=== PATIENT | female | born 1975 | race Caucasian/White ===

== ENCOUNTER 2020-10-24 12:39 | Outpatient (REF) | payer OTHER, SELFPAY ==
[2020-10-27 06:38] LABS: CT PCR NOT DETECTED (Not Detect.); NG PCR NOT DETECTED (Not Detect.)
== END 2020-10-24 12:40 | disposition home or self-care (01) ==
LOC: HO.LAB 12:39
PROVIDERS: PCP Internal Medicine; Referring Provider Internal Medicine; Visit Provider Advanced Practice Midwife
DX: Z01.419 Encounter for gynecological examination (general) (routine) without abnormal findings (principal); Z79.899 Other long term (current) drug therapy; Z20.2 Contact with and (suspected) exposure to infections with a predominantly sexual mode of transmission; G43.909 Migraine, unspecified, not intractable, without status migrainosus
CPT/HCPCS: 87491; 87591

== ENCOUNTER → 2020-10-25 15:00 | Outpatient (BNVA) | payer OTHER, SELFPAY | PROVIDERS: Visit Provider Advanced Practice Midwife | DX: Z30.430 Encounter for insertion of intrauterine contraceptive device (principal) | CPT/HCPCS: 58300; 81025; J7298 ==

== ENCOUNTER 2020-11-15 12:17 | Emergency (ER) | payer OTHER, SELFPAY ==
[2020-11-15 13:22] VITALS: BP 157/88; PULSE 67; RESP 18; TEMP 36.9; O2SAT 100; BMI 28.0
--- NOTE | 2020-11-15 13:33 | CT_ITS ---
EXAMINATION: CT HEAD WITHOUT CONTRAST CLINICAL INFORMATION: Severe headache and vomiting. COMPARISON: None TECHNIQUE: Contiguous axial imaging was performed from the skull base to vertex without intravenous administration of contrast. This CT examination was performed using dose optimization techniques as appropriate, variously including the following: *Automated exposure control *Adjustment of mA and/or kV according to patient size (this includes techniques or standardized protocols for targeted exams where dose is matched to indication/reason for exam; i.e. extremities or head) *Use of iterative reconstruction technique DLP: 624 mGy-cm FINDINGS: There is no evidence of acute intracranial hemorrhage or territorial infarction. No abnormal mass effect or midline shift is seen. Smith to white matter differentiation is well preserved. No extra-axial fluid collections are identified. The ventricles are normal in size. There is no abnormal attenuation within the brain parenchyma. The osseous structures and soft tissues are normal. The mastoid air cells and visualized portions of the paranasal sinuses are well aerated. There is likely a small calcified sinolith in the right sphenoid sinus CT/CT head/brain wo con IMPRESSION: No acute intracranial process seen. There is nonspecific punctate gas seen in the right infratemporal fossa.
--- NOTE | 2020-11-15 13:53 | ED_ITS ---
HPI - General Adult General Chief complaint: General Medical Stated complaint: covid symptoms Time Seen by Provider: 11/15/20 13:27 Source: patient Mode of arrival: ambulatory Limitations: no limitations History of Present Illness HPI narrative: With a past medical history of anxiety, depression, asthma, migraines here with complaints of a generalized headache with photophobia nausea and vomiting for 24 hours. Unrelieved with Motrin at home. She is also complaining of a cough which is nonproductive with nasal congestion and body aches. She has no fevers or chills. No shortness of breath or chest pain. She did have 2 episodes of diarrhea this morning. No complaints of abdominal pain. Denies sick contacts or recent travel Onset (ago): day(s) (<24hrs ) Location: head Radiation: non-radiation Severity: moderate Quality: sharp Pain Consistency: constant Relieving factors: none Exacerbating factors: none Associated symptoms: cough and nausea/vomiting Treatments prior to arrival: none Related Data Previous Rx's Medication Instructions Recorded albuterol sulfate 90 mcg/actuation 2 puff INHALATION Q6H PRN 90 Days 10/29/20 aerosol inhaler #8.5 g naproxen 500 mg tablet 500 mg PO BID #60 tab 10/29/20 Allergies Allergy/AdvReac Type Severity Reaction Status Date / Time No Known Allergies Allergy Verified 10/25/20 15:33 Review of Systems Review of Systems: Yes all other systems are reviewed and are negative Constitutional: Constitutional: Reports no additional constitutional co mplaints, Denies body ache(s), Denies chills, Denies fever(s), Reports headache(s) and Denies weakness Eyes: Eyes: Reports no additional eye complaints, Denies change in vision and Reports photophobia ENT: Reports system reviewed and no additional complaints, except as documented, Denies dizziness, Reports headache(s), Reports nasal congestion, Denies nasal discharge and Denies neck pain Comments: photophobia Cardiovascular: Cardiovascular: Reports no additional cardiovascular complaints, Denies chest pain, Denies leg edema and Denies dyspnea Respiratory: Respiratory: Reports no additional respiratory complaints, Denies cough and Denies dyspnea Gastrointestinal: Gastrointestinal: Reports no additional gastrointestinal complaints, Denies abdominal pain, Reports diarrhea, Reports nausea and Reports vomiting Genitourinary: Genitourinary: Reports no additional female genitourinary complaints and Denies urinary incontinence Musculoskeletal: Musculoskeletal: Reports no additional musculoskeletal complaints, Denies back pain, Denies arthralgias, Denies joint swelling, Denies neck pain, Denies numbness and Denies tingling Integumentary/Breasts: Skin/Breast: Reports system reviewed and no additional complaints, except as docu and Denies rash Neurologic: Reports system reviewed and no additional complaints, except as documented, Denies Abnormal speech present, Denies dizziness, Reports headache(s), Denies numbness, Denies tingling and Denies weakness PMFSH Past Medical History Attestation statement: The following information was validated with the patient. Source: old records reviewed and nursing notes reviewed Medical History Allergic rhinitis Anxiety and depression Asthma Chlamydia HPV (human papilloma virus) infection Migraine Right arm fracture Surgical History History of surgery on arm Family History Family History Father Alzheimers disease Mother Hypertension Osteoporosis Maternal Grandmother Lung cancer Paternal Grandfather CVD (cardiovascular disease) Myocardial infarction Maternal Uncle Stomach cancer Sister Myocardial infarction Social History Social History Alcohol intake: current Alcohol intake frequency: holidays/special occasions only Smoking Status: Never smoker Use of substances other than those prescribed or required for medical reasons: No Advance Directives: No Advance Directives Information Provided: Yes Physical Exam Vital Signs: Vital Signs: Last Vital Signs Temp 98.4 F 11/15/20 16:37 Pulse 68 11/15/20 16:37 Resp 14 11/15/20 16:37 BP 141/77 H 11/15/20 16:37 Pulse Ox 100 11/15/20 16:37 Body Mass Index 28.0 Const: General: cooperative, healthy appearing, comfortable and no acute distress Orientation/consciousness: patient oriented x3 Limitations: no limitations HENMT: Head: Yes normal to inspection Ears: hearing grossly normal bilaterally General nose exam: Normal external nose present Face and sinus: Yes normal facial exam Mouth: Normal oral and palatal mucosa present Throat: Yes posterior oropharynx normal Eyes: General: appearance normal, both eyes and all related structures Visual Ovalles: normal visual ovalles by confrontation Alignment and Position: alignment normal Periorbital: periorbital findings normal Eyelids: Yes eyelids normal Conjunctivae: conjunctivae normal Pupils: Equal, round and reactive pupils present EOM: EOMs intact bilaterally Direct Ophthalmoscopy: photophobia Neck: Neck: Yes normal visual inspection Chest: Chest palpation & inspection: normal inspection of the chest Resp: Effort & Inspection: normal respiratory effort Auscultation: clear to auscultation bilaterally Cardio: Rate: regular rate Rhythm: regular rhythm Peripheral pulses: Peripheral pulses 2+ throughout GI: Inspection: Yes normal to inspection Palpation (GI): Soft to palpation and nontender Auscultation: normal bowel sounds Back/Spine/Pelvis: Thoracic/Lumbar Spine: thoracic and lumbar spine normal to inspection Skin: General skin exam: no rashes or lesions noted Neuro: General: patient oriented x3, no focal motor deficits and normal sensation to monofilament Cranial nerves: Yes CN's II-XII intact bilaterally, Yes Equal, round and reactive pupils present, Yes Bilaterally intact EOM present, Yes Nystagmus not present, Yes Normal facial strength present and Yes Midline tongue present Cognition (Neuro): normal cognition Speech: No Abnormal speech present Gait exam (Neuro): Normal gait present Motor exam (neuro): 5/5 motor strength present throughout Sensory Exam: Normal double simultaneous stimulation for sensation Coordination: [id number] test normal, [id number] test normal and tandem gait normal Extrem: General: Yes normal to inspection Course Course Course Narrative: 45-year-old female here with headache and photophobia which she relates to her migraines. She tells me this feels similar to her migraines but is much more severe than normal. Unrelieved with Motrin at home. She is also complaining of vomiting with diarrhea, cough, nasal congestion and body aches. Will check CT head, place PIV and give IV Reglan and Benadryl. Send COVID testing. 1500-Ct head reads as no acute intracranial process seen. There is nonspecific punctate gas seen in the right infratemporal fossa. Unclear etiology. No injury, fall or trauma. Patient tells me this feels like her typical migraine as far as symptoms but symptoms are more severe and longer lasting. No neck pain with FROM. Does have some flu like symptoms. Discussed with radiologist Dr Borges who notes gas normally seen in trauma or with associated fracture. However, there is no fracture, ICH or reports of trauma. May be a area of fat which is an incidental finding. Did not recommend additional imaging. Pain is improved after receiving reglan, benadryl and IV fluids. Normal neurological exam. Likely incidental finding. Discussed with Dr OSEI who agrees that CHEN, photophobia likely secondary to migraine and no other underlying pathology. COVID test + here which is likely contributing to flu like symptoms. 1600-On discharge pain resolved. Tolerating PO. Feels much improved. Reviewed findings of the CT so patient is aware. Reviewed COVID test results. Reviewed worrisome signs and symptoms and when to return to the emergency department. Comfortable with discharge home. Medical Decision Making MDM Narrative Medical decision making narrative: ICH versus lesion, viral syndrome, migraine Medical Records Medical records reviewed: Yes I reviewed the patient's medical records. Lab Data Lab results reviewed: Yes I reviewed the patient's lab results. Labs: Lab Results 11/15/20 Range/Units 14:27 Coronavirus (PCR) POSITIVE A (Negative) Influenza Type A (PCR) NEGATIVE (Negative) Influenza Type B (PCR) NEGATIVE (Negative) RSV RNA Qual (PCR) NEGATIVE (Negative) Imaging Data CT scan - head: Attestation: I personally reviewed and interpreted this imaging study as follows: Radiologist's impression: EXAMINATION: CT HEAD WITHOUT CONTRAST CLINICAL INFORMATION: Severe headache and vomiting. COMPARISON: None TECHNIQUE: Contiguous axial imaging was performed from the skull base to vertex without intravenous administration of contrast. This CT examination was performed using dose optimization techniques as appropriate, variously including the following: *Automated exposure control *Adjustment of mA and/or kV according to patient size (this includes techniques or standardized protocols for targeted exams where dose is matched to indication/reason for exam; i.e. extremities or head) *Use of iterative reconstruction technique DLP: 624 mGy-cm FINDINGS: There is no evidence of acute intracranial hemorrhage or territorial infarction. No abnormal mass effect or midline shift is seen. Smith to white matter differentiation is well preserved. No extra-axial fluid collections are identified. The ventricles are normal in size. There is no abnormal attenuation within the brain parenchyma. The osseous structures and soft tissues are normal. The mastoid air cells and visualized portions of the paranasal sinuses are well aerated. There is likely a small calcified sinolith in the right sphenoid sinus CT/CT head/brain wo con IMPRESSION: No acute intracranial process seen. There is nonspecific punctate gas seen in the right infratemporal fossa. Discharge Plan Discharge Clinical Impression: COVID-19 Migraine Qualifiers: Migraine type: unspecified Status migrainosus presence: without status migrainosus Intractability: not intractable Qualified Code(s): G43.909 - Migraine, unspecified, not intractable, without status migrainosus Patient Disposition: Home, Self-Care Instructions: Migraine Headache (ED), COVID-19 (Coronavirus Disease 2019) (ED) Additional Instructions: Your COVID test today was positive. You should self quarantine for total of 10 days from when your symptoms started and all symptoms mostly resolved for greater than 24 hours. Take Motrin or Tylenol for pain or fever as needed Increase fluids, rest Your CT scan today showed a tiny area of gas. This is likely an incidental finding and not contributing to your symptoms. However, you should be aware of it and can follow-up with your primary care doctor with this once you have recovered from your COVID 19 infection. Return for >2 vomiting episodes, no urine output >8 hrs, severe neck pain associated with headache, fever that does not respond to motrin and tylenol. Prescriptions: No Action albuterol sulfate 90 mcg/actuation HFA aerosol inhaler 2 puff inhalation Q6H PRN (Reason: bronchospasm) 90 Days Qty: 8.5 RF: 0 naproxen 500 mg tablet 500 mg PO BID Qty: 60 RF: 2 Referrals: Po,Nadia Ray MD [Primary Care Provider] - 2 days Stand Alone Forms: Work/School Release Interventions: ED Discharge Assessment Last Done: 11/15/20 16:39 Discharge Date/Time: 11/15/20 17:15
[2020-11-15] MEDS: Metoclopramide HCl 10 MG/2 ML VIAL IVPUSH (13:58)
[2020-11-15] MEDS: 0.9 % Sodium Chloride 1,000 ML 999 ML IV (13:58)
[2020-11-15] MEDS: diphenhydrAMINE HCL 50 MG/ML VIAL 25 MG IVPUSH (13:58)
[2020-11-15 14:00] VITALS: BP 136/83; PULSE 67; RESP 14; TEMP 36.9; O2SAT 100
[2020-11-15 15:16] LABS: Influenza A PCR NEGATIVE (Negative); Influenza B PCR NEGATIVE (Negative); Resp Syncy Virus RNA Qual PCR NEGATIVE (Negative); SARS COV2 PCR INHOUSE POSITIVE (Negative)
[2020-11-15 16:37] VITALS: BP 141/77; PULSE 68; RESP 14; TEMP 36.9; O2SAT 100
== END 2020-11-15 17:15 | disposition home or self-care (01) ==
PROVIDERS: Nurse Practitioner Family; Emergency Provider Emergency Medicine Emergency Medical Services; PCP Internal Medicine
DX: U07.1 COVID-19 (principal); G43.909 Migraine, unspecified, not intractable, without status migrainosus; R05 Cough; Z79.899 Other long term (current) drug therapy
CPT/HCPCS: 0241U; 70450; 96361; 96374; 96375; 99284; J1200; J2765

== ENCOUNTER 2021-12-10 16:03 | Outpatient (REF) | payer BC, SELFPAY ==
--- NOTE | ~2021-12-10 | CT_ITS ---
EXAMINATION: CT HEAD WITHOUT CONTRAST CLINICAL INFORMATION: Fall. COMPARISON: CT head dated from 11/15/2020. TECHNIQUE: Contiguous axial imaging was performed from the skull base to vertex without intravenous administration of contrast. This CT examination was performed using dose optimization techniques as appropriate, variously including the following: *Automated exposure control *Adjustment of mA and/or kV according to patient size (this includes techniques or standardized protocols for targeted exams where dose is matched to indication/reason for exam; i.e. extremities or head) *Use of iterative reconstruction technique DLP: 623 mGy-cm FINDINGS: There is no evidence of acute intracranial hemorrhage or territorial infarction. No abnormal mass effect or midline shift is seen. Smith to white matter differentiation is well preserved. No extra-axial fluid collections are identified. The ventricles are normal in size. There is no abnormal attenuation within the brain parenchyma. The osseous structures and soft tissues are normal. Air-fluid level in the left maxillary sinus. Mild mucosal thickening of the frontal sinuses and ethmoidal air cells. The mastoids are clear. CT/CT head/brain wo con IMPRESSION: No acute intracranial pathology. Paranasal sinus disease.
== END 2021-12-10 16:04 | disposition home or self-care (01) ==
LOC: HO.CT 16:03
PROVIDERS: PCP Internal Medicine; Visit Provider Nurse Practitioner Family
DX: R51.9 Headache, unspecified (principal); Z91.81 History of falling
CPT/HCPCS: 70450

== ENCOUNTER 2022-02-25 12:37 | Outpatient (REF) | payer OTHER, SELFPAY ==
--- NOTE | ~2022-02-25 | MM_ITS ---
EXAMINATION: MM SCREENING DIGITAL BREAST TOMOSYNTHESIS, BILATERAL CLINICAL INFORMATION: Screening. Asymptomatic. The lifetime risk of breast cancer based on the Tyrer-Cuzick Model is 10%. COMPARISON: Mammography: 04/27/2019, 10/29/2017, 10/14/2017 (baseline). TECHNIQUE: Digital breast tomosynthesis is performed in both the craniocaudal and mediolateral oblique views along with computer-aided detection (CAD). Synthesized 2D images are generated from the tomosynthesis. FINDINGS: The breasts are heterogeneously dense, which may obscure small masses (ACR BI-RADS breast composition Category c). Parenchymal pattern is similar to prior studies. There are scattered asymmetries similar to the prior studies. Minor bilateral fibronodular changes are without significant change. There is no significant mass or architectural abnormality. No abnormal calcifications. The axilla and skin contours are unremarkable. MM/MM tomosynthesis screening BI IMPRESSION: No significant changes from prior exams. ASSESSMENT: BI-RADS 2: Benign RECOMMENDATION: Routine annual mammography screening. This patient's information was entered into a reminder system with a target due date for their next mammogram.
== END 2022-02-25 12:38 | disposition home or self-care (01) ==
LOC: HO.MAMMO 12:37
PROVIDERS: Visit Provider Internal Medicine
DX: Z12.31 Encounter for screening mammogram for malignant neoplasm of breast (principal)
CPT/HCPCS: 77063; 77067

== ENCOUNTER 2022-03-18 07:15 | Outpatient (REF) | payer OTHER, SELFPAY ==
--- NOTE | 2022-03-18 07:47 | ECG_ITS ---
Test Reason : Z00.00 Blood Pressure : / mmHG Vent. Rate : 062 BPM Atrial Rate : 062 BPM P-R Int : 154 ms QRS Dur : 082 ms QT Int : 414 ms P-R-T Axes : 067 020 044 degrees QTc Int : 420 ms Normal sinus rhythm Normal ECG When compared with ECG of 10-JAN-2012 15:49, No significant change was found Referred By: Araseli Gaona Electronically Signed By:STEVEN BARNEY MD
[2022-03-18 08:49] LABS: Alanine Aminotransferase 17 U/L (0-31); Albumin Level 4.2 g/dL (3.5-5.0); Alkaline Phosphatase 97 U/L (39-117); Anion Gap 12 (12-20); Aspartate Amino Transferase 17 U/L (5-31); Bilirubin Total 1.4 mg/dL (0.0-1.0); Blood Urea Nitrogen 19 mg/dL (9-16); Calcium 9.4 mg/dL (8.4-10.2); Carbon Dioxide 25 mmol/L (22-29); Chloride 108 mmol/L (96-108); Cholesterol 186 mg/dL; Estimated Glomerular Filt Rate > 60; Glucose Fasting 87 mg/dL (60-99); HDL Cholesterol 57 mg/dL; LDL Cholesterol Calculated 118 mg/dl; Potassium 4.6 mmol/L (3.3-5.1); Sodium 140 mmol/L (135-145); Total Protein 7.4 g/dL (6.5-8.0); Triglycerides 58 mg/dL
[2022-03-18 09:14] LABS: TSH reflex Free T4 1.31 uIU/mL (0.32-4.0); Vitamin D 25-OH Total 18.6 ng/mL (>30)
[2022-03-18 09:21] LABS: Folate 8.9 ng/mL (> or = 4.0); Vitamin B12 181 pg/mL (200-900)
[2022-03-18 16:46] LABS: CT PCR NOT DETECTED (Not Detect.); NG PCR NOT DETECTED (Not Detect.)
[2022-03-19 12:15] LABS: BV Int Neg Control Negative (Negative); BV Int Pos Control Positive (Positive)
[2022-03-20 23:12] LABS: HPV mRNA E6/E7 rflx Not Detected (Not Detected)
== END 2022-03-18 07:16 | disposition home or self-care (01) ==
LOC: HO.LAB 07:15
PROVIDERS: Advanced Practice Midwife; PCP Internal Medicine; Visit Provider Nurse Practitioner Family
DX: Z00.00 Encounter for general adult medical examination without abnormal findings (principal); Z12.4 Encounter for screening for malignant neoplasm of cervix; Z11.51 Encounter for screening for human papillomavirus (HPV); Z13.29 Encounter for screening for other suspected endocrine disorder; Z13.220 Encounter for screening for lipoid disorders; R10.2 Pelvic and perineal pain; J45.909 Unspecified asthma, uncomplicated; Z20.2 Contact with and (suspected) exposure to infections with a predominantly sexual mode of transmission
CPT/HCPCS: 36415; 80053; 80061; 82306; 82607; 82746; 84443; 87480; 87491; 87510; 87591; 87624; 87660; 88142; 93005

== ENCOUNTER 2022-05-07 15:51 | Outpatient (REF) | payer OTHER, SELFPAY ==
--- NOTE | ~2022-05-07 | US_ITS ---
EXAMINATION: US PELVIS CLINICAL INFORMATION: Pelvic and perineal pain. COMPARISON: Ultrasound pelvis 04/16/2010. TECHNIQUE: Ultrasound of the pelvis is performed using both transabdominal and transvaginal transducers along with Doppler. Transvaginal imaging is performed due to inadequate visualization transabdominally. FINDINGS: Uterus: The uterus is anteverted and measures 8.7 cm in length, 4.2 cm in AP and 6.2 cm in transverse dimension. The double wall endometrial thickness is 0.9 mm. The uterus is smooth in contour and has normal myometrial echogenicity. There is a hypoechoic lesion in the right body of uterus measuring 1.7 x 1.4 x 1.4 cm. There is an IUD well located within the endometrial canal. Adnexa: Both ovaries are visualized. There is normal color flow to the adnexa. There is no ovarian torsion. There is no pelvic ascites or fluid collection. Right ovary measures 2.5 x 1.9 x 1.5 cm and volume 3.7 mL. It appears unremarkable. Left ovary measures 4.2 x 1.9 x 2.5 cm and volume 10.4 mL. There is anechoic cyst on the transabdominal ultrasound measuring 1.7 x 1.7 x 1.0 cm. There is no free fluid in the cul-de-sac. US/US pelvic and transvaginal IMPRESSION: Anteverted uterus with a solitary fibroid, new since the previous study. IUD in correct position within the endometrial canal. Small cyst left ovary. The right ovary is unremarkable.
== END 2022-05-07 15:52 | disposition home or self-care (01) ==
LOC: HO.US 15:51
PROVIDERS: Visit Provider Advanced Practice Midwife
DX: R10.2 Pelvic and perineal pain (principal)
CPT/HCPCS: 76830; 76856

== ENCOUNTER → 2022-05-30 08:38 | Outpatient (BNVA) | payer OTHER, SELFPAY | PROVIDERS: PCP Internal Medicine; Visit Provider Advanced Practice Midwife | DX: Z71.2 Person consulting for explanation of examination or test findings (principal); R10.2 Pelvic and perineal pain; D25.9 Leiomyoma of uterus, unspecified | CPT/HCPCS: 99212 ==

== ENCOUNTER → 2022-07-18 08:51 | Outpatient (BNVA) | payer OTHER, SELFPAY | PROVIDERS: PCP Internal Medicine; Visit Provider Dietitian, Registered | DX: Z71.3 Dietary counseling and surveillance (principal); E66.9 Obesity, unspecified; Z68.31 Body mass index [BMI] 31.0-31.9, adult | CPT/HCPCS: 97802 ==

== ENCOUNTER 2023-03-23 08:29 | Outpatient (REF) | payer OTHER, SELFPAY ==
[2023-03-23 08:45] LABS: MANUAL DIFF FLAG NO
[2023-03-23 09:21] LABS: Basophils Percent Auto 0.6 % (0-2); Eosinophils Absolute Auto 0.2 X10*3/uL (0.0-0.4); Hematocrit 42.6 % (37.0-47.0); Hemoglobin 14.2 g/dl (12.0-16.0); Imm Gran Abs Auto 0.02 X10*3/uL (0.00-0.03); Imm Gran Pct Auto 0.3 % (0.0-0.4); Lymphocytes Absolute Auto 1.6 X10*3/uL (1.2-4.9); Lymphocytes Percent Auto 23.7 % (20-40); Mean Corpuscular HGB Conc 33.3 g/dl (31.0-35.0); Mean Corpuscular Hemoglobin 32.1 pg (27.0-33.0); Mean Corpuscular Volume 96.4 fL (80.0-98.0); Mean Platelet Volume 9.7 fL (9.4-12.3); Monocytes Absolute Auto 0.5 X10*3/uL (0.1-1.2); Neutrophils Absolute Auto 4.4 x10*3/uL (2.0-8.3); Neutrophils Percent Auto 65.4 % (45-73); Platelet Count 320 X10*3/uL (160-400); Red Blood Count 4.42 X10*6/uL (4.20-5.50); Red Cell Distribution Width 12.3 % (11.0-16.0); White Blood Count 6.7 X10*3/uL (4.8-10.8)
[2023-03-23 09:55] LABS: Alanine Aminotransferase 12 U/L (0-31); Alkaline Phosphatase 107 U/L (39-117); Anion Gap 8 (12-20); Aspartate Amino Transferase 12 U/L (5-31); Bilirubin Total 1.8 mg/dL (0.0-1.0); Blood Urea Nitrogen 17 mg/dL (9-16); Carbon Dioxide 24 mmol/L (22-29); Chloride 110 mmol/L (96-108); Cholesterol 160 mg/dL; Estimated Glomerular Filt Rate > 60; Glucose Random 85 mg/dL (60-115); HDL Cholesterol 43 mg/dL; LDL Cholesterol Calculated 103 mg/dl; Potassium 4.2 mmol/L (3.3-5.1); Sodium 138 mmol/L (135-145); Total Protein 6.8 g/dL (6.5-8.0); Triglycerides 73 mg/dL
[2023-03-23 10:26] LABS: Folate 6.6 ng/mL (> or = 4.0); Free T4 (Free Thyroxine) 0.95 ng/dL (0.71-1.85); Thyroid Stimulating Hormone 1.23 uIU/mL (0.32-4.0); Vitamin B12 680 pg/mL (200-900); Vitamin D 25-OH Total 28.4 ng/mL (>30)
== END 2023-03-23 08:30 | disposition home or self-care (01) ==
LOC: HO.LAB 08:29
PROVIDERS: PCP Internal Medicine; Visit Provider Internal Medicine
DX: E66.9 Obesity, unspecified (principal); E78.00 Pure hypercholesterolemia, unspecified
CPT/HCPCS: 36415; 80053; 80061; 82306; 82607; 82746; 84439; 84443; 85025

== ENCOUNTER 2023-06-08 08:56 | Outpatient (AMB) | payer OTHER, SELFPAY ==
[2023-06-08 09:04] VITALS: BP 124/78; PULSE 75; O2SAT 98; BMI 32.3
--- NOTE | 2023-06-08 09:04 | A.OFFPC_ITS ---
Vital Signs 06/08/23 09:04 Height 5 ft 9 in Weight 219 lb BMI 32.3 BP 124/78 Blood Pressure Location Lt brachial Position Sitting Pulse 75 Pulse Source Pulse Oximeter Pulse Oximetry (%) 98 Oxygen Delivery Method Room Air Intake Visit Reasons: Obesity, migraine, asthma Allergies Seasonal Allergies Allergy (Severe, Verified 06/08/23 09:04) Itchy Eyes Medication List - Last Reconciled 06/08/23 by Nadia Omalley MD albuterol sulfate 90 mcg/actuation (Ventolin HFA) 2 puffs inhalation Q6H PRN cetirizine (Zyrtec) 10 mg PO DAILY cholecalciferol (vitamin D3) 50 mcg PO DAILY cyanocobalamin (vitamin B-12) 1,000 mcg PO DAILY fluticasone propionate 50 mcg/actuation (Flonase Allergy Relief) 1 spray intranasal DAILY levonorgestrel (Mirena) intrauterine naproxen 500 mg PO BID Tobacco use date assessed: 12/15/22 Dental Screening Dental Screen Date: 06/08/23 Did you have a dental visit in the last 12 months?: Yes Did you have a dental problem in the last 6 months where you did not have access to dental care?: No Was dental information given to patient?: Patient has dentist HPI Obesity, migraine, asthma HPI Details 48-year-old obese female with a history of migraine low vitamin B12 asthma last seen in February for physical exam blood work requested and is here for follow-up. Patient has been seen by Gastroenterology for colonoscopy plan. Patient's breathing has been under control. Patient is asking for letter that she has photosensitivity from migraine. [facility]LY [facility] Medical History Adult general medical exam Allergic rhinitis Annual physical exam Asthma Breast cancer screening by mammogram Colon cancer screening Concussion COVID-19 virus infection Dietary counseling Elevated bilirubin Encounter for annual routine gynecological examination Headache HPV (human papilloma virus) infection Migraine Obese Pelvic pain in female Rhinitis Right arm fracture Screening for diabetes mellitus Screening for hyperlipidemia Screening for hypothyroidism Status post fall Surgical History History of surgery on arm Family History Father Alzheimers disease Mother Hypertension Osteoporosis Maternal Grandmother Lung cancer Paternal Grandfather CVD (cardiovascular disease) Myocardial infarction Maternal Uncle Stomach cancer Sister Myocardial infarction Other Mental health disorder Social History Housing: House Alcohol intake: never Patient Tobacco Use Status: Never used Tobacco e-Cigarette/Vaping Use: Never Used Second Hand Smoke Exposure: No Current occupational status: employed Sexual orientation: Straight/Heterosexual Gender identity: Female Cognitive needs: No Hearing needs: No Vision needs: No Female Reproductive History Menstrual Age of Menarche: 15 Questionnaire PHQ-9 Over the last 2 weeks, how often have you been bothered by any of the following problems? 1. Little interest or pleasure in doing things: several days 2. Feeling down, depressed, or hopeless: several days 3. Trouble falling or staying asleep, or sleeping too much: several days 4. Feeling tired or having little energy: several days 5. Poor appetite or overeating: several days 6. Feeling bad about yourself - or that you are a failure or have let yourself or your family down: not at all 7. Trouble concentrating on things, such as reading the newspaper or watching television: not at all 8. Moving or speaking so slowly that other people could have noticed. Or the opposite - being so fidgety or restless that you have been moving around a lot more than usual: not at all 9. Thoughts that you would be better off or of hurting yourself in some way: not at all Total score: 5 Depression Screening Interpretation: Positive Source: Developed by Drs. Taiwo King, Serge Yates and colleagues, with an educational jessica from [employer]. Thrive Questionnaire Date Thrive assessed: 12/15/22 AUDIT C Alcohol Use Questionnaire (AUDIT-C) 1. How often do you have a drink containing alcohol?: Never Total Score: 0 Score Reviewed/Action Taken: No MADI-7 AMB Questionnaire MADI-7 Date MADI - 7 assessed: 03/05/23 Source: Developed by Drs. Taiwo King, Serge Yates and colleagues, with an educational jessica from [employer]. Physical exam (Primary Care) Vital Signs: Oxygen Delivery Method Room Air 06/08/23 09:04 BMI result Body Mass Index 32.3 Tobacco/Smoking Status: Tobacco use Status Tobacco use date assessed 12/15/22 03/05/23 09:14 Patient Tobacco Use Status Never used Tobacco 03/23/23 08:53 Tobacco use type 04/04/22 09:09 e-Cigarette/Vaping Use Never Used 03/23/23 08:53 Depression Screening Interpretation: Positive Thrive Assessment: Date of Thrive Assessment Date Thrive assessed 12/15/22 03/05/23 09:14 Const General: alert; No acute distress Eyes Conjunctivae: conjunctivae normal Resp Auscultation: clear to auscultation bilaterally Cardio Rate: regular rate Rhythm: regular rhythm GI Inspection: Yes normal to inspection Extrem General: Yes normal to inspection and No edema Assessment and Plan Assessment & Plan (1) Obesity (BMI 30.0-34.9): Code(s): E66.9 - Obesity, unspecified Plan: Continue with diet and exercise (2) Migraine: Code(s): G43.909 - Migraine, unspecified, not intractable, without status migrainosus Plan: Keep well hydrated, keep active (3) Low vitamin B12 level: Code(s): E53.8 - Deficiency of other specified B group vitamins Plan: Continue with vitamin B12 (4) Asthma: Code(s): J45.909 - Unspecified asthma, uncomplicated Plan: D with inhaler as needed Coding Level of Care Code Est Pt Level 4 (42323) Diagnoses Obesity (BMI 30.0-34.9) E66.9 Migraine G43.909 Low vitamin B12 level E53.8 Asthma J45.909 Additional Codes PHQ-9 - 18074 - PHQ-9 Billing: Y ([id number])
== END 2023-06-08 09:24 | disposition home or self-care (01) ==
PROVIDERS: PCP Internal Medicine; Visit Provider Internal Medicine
DX: G43.909 Migraine, unspecified, not intractable, without status migrainosus (principal); J45.909 Unspecified asthma, uncomplicated; Z68.32 Body mass index [BMI] 32.0-32.9, adult; E66.9 Obesity, unspecified; E53.8 Deficiency of other specified B group vitamins
CPT/HCPCS: 99214

== ENCOUNTER 2023-07-10 11:35 | Outpatient (REF) | payer OTHER, SELFPAY | END 2023-07-10 11:36 | disposition home or self-care (01) | LOC: HO.MAMMO 11:35 | PROVIDERS: Visit Provider Internal Medicine | DX: Z12.31 Encounter for screening mammogram for malignant neoplasm of breast (principal) | CPT/HCPCS: 77063; 77067 ==

== ENCOUNTER → 2023-07-10 11:45 | Outpatient (BNV) | payer OTHER, SELFPAY | PROVIDERS: Visit Provider Radiology Diagnostic Radiology | DX: Z12.31 Encounter for screening mammogram for malignant neoplasm of breast (principal) | CPT/HCPCS: 77063; 77067 ==

== ENCOUNTER 2023-12-04 12:51 | Outpatient (AMB) | payer OTHER, SELFPAY ==
--- NOTE | 2023-12-04 13:03 | MHC.OFFVIS ---
Intake Intake Visit Reasons: new partner w/AUB Allergies Seasonal Allergies Allergy (Severe, Verified 06/08/23 09:04) Itchy Eyes HPI HPI Comments History of Present Illness Details Patient is here today with complaints of cramping and unusual bleeding with her Mirena IUD. She reports a new intimate partner over the last 3 weeks. Denies any symptoms of dysuria. PFS Medical History Adult general medical exam Allergic rhinitis Annual physical exam Asthma Breast cancer screening by mammogram Colon cancer screening Concussion COVID-19 virus infection Dietary counseling Elevated bilirubin Encounter for annual routine gynecological examination Headache HPV (human papilloma virus) infection Migraine Obese Pelvic pain in female Rhinitis Right arm fracture Screening for diabetes mellitus Screening for hyperlipidemia Screening for hypothyroidism Status post fall Surgical History History of surgery on arm Family History Father Alzheimers disease Mother Hypertension Osteoporosis Maternal Grandmother Lung cancer Paternal Grandfather CVD (cardiovascular disease) Myocardial infarction Maternal Uncle Stomach cancer Sister Myocardial infarction Other Mental health disorder Social History Housing: House Alcohol intake: never Patient Tobacco Use Status: Never used Tobacco e-Cigarette/Vaping Use: Never Used Second Hand Smoke Exposure: No Current occupational status: employed Sexual orientation: Straight/Heterosexual Gender identity: Female Cognitive needs: No Hearing needs: No Vision needs: No Female Reproductive History Menstrual Age of Menarche: 15 control method: progestin IUCD (Mirena 10/25/22) Review of Systems Const All systems reviewed & are unremarkable except as noted in HPI and below Physical Exam Const General: cooperative, healthy appearing and no acute distress Orientation/consciousness: patient oriented x3 GI Inspection: Yes normal to inspection Palpation (GI): Soft to palpation and Other GI palpation findings present (Nontender) Rectal Exam - Female: visual inspection normal General: Yes bladder normal to palpation External Female Exam: normal appearance of the urethra Speculum Exam - Vagina: normal appearance of the vagina, normal palpation, normal vaginal discharge and vaginal bleeding Speculum Exam - Cervix: normal appearance of the cervix, normal palpation and Other cervical findings present (No IUD string seen or palpated) Bimanual exam- vagina & uterus: normal bimanual exam, normal palpation, uterine size normal, bladder normal to palpation, normal palpation, uterine shape normal and non-tender Bimanual Exam- Adnexa, other: normal adnexae OB/external & speculum: vaginal bleeding Neuro General: patient oriented x3 Results AMB Test Urine AMB Test Urine Negative Last Edit by Jumana Gill CMA on 12/04/23 13:28 Results Reviewed Results Reviewed: Laboratory Last Values Tst Clinic Negative 12/04/23 13:28 Assessment & Plan Assessment & Plan (1) Irregular bleeding: Code(s): N92.6 - Irregular menstruation, unspecified (2) IUD surveillance: Code(s): Z30.431 - Encounter for routine checking of intrauterine contraceptive device Plan GC chlamydia and BV panel. Pelvic ultrasound. Pelvic rest warnings when to seek emergent care. Return to the office in 2 weeks for follow-up ultrasound findings. Use of condoms for now. All of her questions and concerns were addressed to the best of my ability and shared decision making. She is agreeable to the plan of care. Orders: Orders AMB HCG Urine Test Today Z32.02 - Encounter for test, result negative US pelvic and transvaginal Today N92.6 - Irregular menstruation, unspecified, Z30.431 - Encounter for routine checking of intrauterine contraceptive device Coding Level of Care Code New Pt Level 4 (36226) Diagnoses Irregular bleeding N92.6 IUD surveillance Z30.431
== END 2023-12-04 15:08 | disposition home or self-care (01) ==
PROVIDERS: Visit Provider Advanced Practice Midwife
DX: N92.6 Irregular menstruation, unspecified (principal); Z30.431 Encounter for routine checking of intrauterine contraceptive device; Z32.02 Encounter for pregnancy test, result negative
CPT/HCPCS: 99214

== ENCOUNTER 2023-12-04 12:51 | Outpatient (REF) | payer OTHER, SELFPAY ==
[2023-12-05 06:00] LABS: CT PCR NOT DETECTED (Not Detect.); NG PCR NOT DETECTED (Not Detect.)
[2023-12-05 12:49] LABS: BV Int Neg Control Negative (Negative); BV Int Pos Control Positive (Positive)
== END 2023-12-04 12:52 | disposition home or self-care (01) ==
LOC: HO.LNP 12:51
PROVIDERS: Visit Provider Advanced Practice Midwife
DX: Z20.2 Contact with and (suspected) exposure to infections with a predominantly sexual mode of transmission (principal); N92.6 Irregular menstruation, unspecified
CPT/HCPCS: 0353U; 81025; 87480; 87510; 87660; 99212

== ENCOUNTER 2023-12-17 13:48 | Outpatient (REF) | payer OTHER, SELFPAY ==
--- NOTE | ~2023-12-17 | US_ITS ---
EXAMINATION: US PELVIS CLINICAL INFORMATION: Irregular menstruation LMP: 2 weeks ago COMPARISON: Pelvic ultrasound 05/07/2022 TECHNIQUE: Ultrasound of the pelvis is performed using both transabdominal and transvaginal transducers along with Doppler. Transvaginal imaging is performed due to inadequate visualization transabdominally. FINDINGS: Uterus: The uterus is anteverted and measures 9.2 x 4.0 x 5.4 cm. 1.3 x 1.4 x 1.3 cm posterior fibroid previously measured 1.7 x 1.4 x 1.4 cm. IUD is seen within the endometrial cavity. Adnexa: There is normal color flow to the adnexa. There is no ovarian torsion. There is no pelvic ascites or fluid collection. Right ovary measures 3.3 x 3.9 x 3.7 cm. Volume 25.0 mL. The right ovary contains a 2.8 x 3.2 x 3.2 cm simple cyst. This is considered a benign functional cyst. No follow-up imaging is recommended. Left ovary measures 2.6 x 1.9 x 2.1 cm. Volume 5.4 mL. Probable 2.2 x 1.4 x 1.8 cm involuting corpus luteum. US/US pelvic and transvaginal IMPRESSION: 1. 1.4 cm posterior fibroid. 2. IUD is seen within the endometrial cavity. 3. 3.2 cm simple cyst in the right ovary is considered a benign functional cyst. No imaging follow-up is recommended. 4. Probable 2.2 cm involuting corpus luteum in the left ovary. No imaging follow-up is recommended.
== END 2023-12-17 13:49 | disposition home or self-care (01) ==
LOC: HO.US 13:48
PROVIDERS: Visit Provider Advanced Practice Midwife
DX: Z30.431 Encounter for routine checking of intrauterine contraceptive device (principal); N92.6 Irregular menstruation, unspecified
CPT/HCPCS: 76830; 76856

== ENCOUNTER 2024-01-14 11:18 | Outpatient (AMB) | payer OTHER, SELFPAY ==
--- NOTE | 2024-01-14 11:19 | MHC.OFFVIS ---
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 Prior exam she had reported pelvic cramping. Recent culture revealed positive for bacterial vaginosis she had declined treatment at the time due to having her symptoms resolved. She does not have any pelvic cramping vaginal odors discharge today. She reports her last cycle was normal and short. [facility] Medical History Adult general medical exam Allergic rhinitis Annual physical exam Asthma Breast cancer screening by mammogram Colon cancer screening Concussion COVID-19 virus infection Dietary counseling Elevated bilirubin Encounter for annual routine gynecological examination Headache HPV (human papilloma virus) infection Migraine Obese Pelvic pain in female Rhinitis Right arm fracture Screening for diabetes mellitus Screening for hyperlipidemia Screening for hypothyroidism Status post fall Surgical History History of surgery on arm Family History Father Alzheimers disease Mother Hypertension Osteoporosis Maternal Grandmother Lung cancer Paternal Grandfather CVD (cardiovascular disease) Myocardial infarction Maternal Uncle Stomach cancer Sister Myocardial infarction Other Mental health disorder Social History Housing: House Alcohol intake: never Patient Tobacco Use Status: Never used Tobacco e-Cigarette/Vaping Use: Never Used Second Hand Smoke Exposure: No Current occupational status: employed Sexual orientation: Straight/Heterosexual Gender identity: Female Cognitive needs: No Hearing needs: No Vision needs: No Female Reproductive History Menstrual Age of Menarche: 15 Review of Systems Const All systems reviewed & are unremarkable except as noted in HPI and below Endo Reports no additional complaints Physical Exam Vital Signs: Last Vital Signs BP 120/76 01/14/24 11:20 Const General: cooperative, healthy appearing and no acute distress Psych Appearance: well kempt Attitude: cooperative Thought process: Normal thought process present Results Reviewed Results Reviewed: [address] [address] Ultrasound Report Signed Patient: Serenity Jack I MR#: [id number] : 1975 Acct:[id number] Age/Sex: 48 / F ADM Date: 12/17/23 Loc: HO.US Attending Dr: Gayathri Aguayo CNM Ordering Physician: Gayathri Aguayo CNM Date of Service: 12/17/23 Procedure(s): US pelvic and transvaginal Accession Number(s): [id number] cc: Gayathri Aguayo CNM~ EXAMINATION: US PELVIS CLINICAL INFORMATION: Irregular menstruation LMP: 2 weeks ago COMPARISON: Pelvic ultrasound 05/07/2022 TECHNIQUE: Ultrasound of the pelvis is performed using both transabdominal and transvaginal transducers along with Doppler. Transvaginal imaging is performed due to inadequate visualization transabdominally. FINDINGS: Uterus: The uterus is anteverted and measures 9.2 x 4.0 x 5.4 cm. 1.3 x 1.4 x 1.3 cm posterior fibroid previously measured 1.7 x 1.4 x 1.4 cm. IUD is seen within the endometrial cavity. Adnexa: There is normal color flow to the adnexa. There is no ovarian torsion. There is no pelvic ascites or fluid collection. Right ovary measures 3.3 x 3.9 x 3.7 cm. Volume 25.0 mL. The right ovary contains a 2.8 x 3.2 x 3.2 cm simple cyst. This is considered a benign functional cyst. No follow-up imaging is recommended. Left ovary measures 2.6 x 1.9 x 2.1 cm. Volume 5.4 mL. Probable 2.2 x 1.4 x 1.8 cm involuting corpus luteum. US/US pelvic and transvaginal IMPRESSION: 1. 1.4 cm posterior fibroid. 2. IUD is seen within the endometrial cavity. 3. 3.2 cm simple cyst in the right ovary is considered a benign functional cyst. No imaging follow-up is recommended. 4. Probable 2.2 cm involuting corpus luteum in the left ovary. No imaging follow-up is recommended. Dictated By: Kayli Koroma MD Signed By: <Electronically signed by Kayli Koroma MD in OV> 12/17/23 1509 DD/ 1423 Assessment & Plan Assessment & Plan (1) Fibroid: Code(s): D21.9 - Benign neoplasm of connective and other soft tissue, unspecified (2) Encounter to discuss test results: Code(s): Z71.2 - Person consulting for explanation of examination or test findings Plan Discussed: Counseled re: Leiomyoma: common pelvic neoplasm. Differential diagnosis-may include leiomyosarcoma which is a rare uterine sarcoma 3-7/100,000, difficult to distinguish from fibroids on ultrasound from uterine sarcoma's. Unlikely any single test will have a highly positive predictive value. Hysterectomy is not recommended for sole purpose of excluding malignant neoplasm. Report any PMB/AUB. Pelvic pressure, bloating, or pain. Expectant management follow up in 6 months, then yearly for stability. Referral to MD if indicated for level of care. Ultrasound ordered 6 months, follow-up to discuss in-person planned. Patient's next visit is for her annual scheduled this March. All of her questions and concerns were addressed to the best of my ability and shared decision making. She is agreeable to the plan of care. This note is constructed using voice recognition software. While every effort has been made to ensure accuracy, fitter placer errors may have been included. Orders: Orders US pelvic and transvaginal 6 Months D21.9 - Benign neoplasm of connective and other soft tissue, unspecified Coding Level of Care Code Est Pt Level 3 (29646) Diagnoses Fibroid D21.9 Encounter to discuss test results Z71.2
[2024-01-14 11:20] VITALS: BP 120/76
== END 2024-01-14 12:20 | disposition home or self-care (01) ==
PROVIDERS: Visit Provider Advanced Practice Midwife
DX: D21.9 Benign neoplasm of connective and other soft tissue, unspecified (principal); Z71.2 Person consulting for explanation of examination or test findings
CPT/HCPCS: 99213

== ENCOUNTER → 2024-01-14 11:18 | Outpatient (BNVA) | payer OTHER, SELFPAY | PROVIDERS: Visit Provider Advanced Practice Midwife | DX: Z71.2 Person consulting for explanation of examination or test findings (principal); D21.9 Benign neoplasm of connective and other soft tissue, unspecified | CPT/HCPCS: 99212 ==

== ENCOUNTER 2024-03-10 10:07 | Outpatient (AMB) | payer OTHER, SELFPAY ==
[2024-03-10 10:11] VITALS: BP 110/82; PULSE 100; O2SAT 97; BMI 33.8
--- NOTE | 2024-03-10 10:11 | A.OFFPC_ITS ---
Vital Signs 03/10/24 10:11 Height 5 ft 9 in Weight 229 lb 0.8 oz BMI 33.8 BP 110/82 Blood Pressure Location Lt brachial Position Sitting Pulse 100 Pulse Source Pulse Oximeter Pulse Oximetry (%) 97 Oxygen Delivery Method Room Air Intake Visit Reasons: Annual Exam Intake Note: Patient is here today for a physical. 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 Allergies Seasonal Allergies Allergy (Severe, Verified 03/10/24 10:27) Itchy Eyes Medication List - Last Reconciled 03/10/24 by Nadia Omalley MD albuterol sulfate 90 mcg/actuation (Ventolin HFA) 2 puffs inhalation Q6H PRN cetirizine (Zyrtec) 10 mg PO DAILY cholecalciferol (vitamin D3) 50 mcg PO DAILY cyanocobalamin (vitamin B-12) 1,000 mcg PO DAILY fluticasone propionate 50 mcg/actuation (Flonase Allergy Relief) 1 spray intranasal DAILY levonorgestrel (Mirena) intrauterine naproxen 500 mg PO BID Tobacco use date assessed: 03/10/24 Dental Screening Dental Screen Date: 03/10/24 Did you have a dental visit in the last 12 months?: Yes Did you have a dental problem in the last 6 months where you did not have access to dental care?: No Was dental information given to patient?: Patient has dentist HPI Annual Exam HPI Details 48-year-old obese female with a history of migraine asthma coming in for physical exam last seen in May 2023. Mammogram is up-to-date. Review of the notes had an ultrasound of the pelvis showing 1.4 cm posterior fibroid IUD simple cyst in the right ovary benign 2.2 cm involuting corpus luteum in the left ovary. [facility] Medical History Adult general medical exam Allergic rhinitis Annual physical exam Asthma Breast cancer screening by mammogram Colon cancer screening Concussion COVID-19 virus infection Dietary counseling Elevated bilirubin Encounter for annual routine gynecological examination Headache HPV (human papilloma virus) infection Migraine Obese Pelvic pain in female Rhinitis Right arm fracture Screening for diabetes mellitus Screening for hyperlipidemia Screening for hypothyroidism Status post fall Surgical History History of surgery on arm Family History Father Alzheimers disease Mother Hypertension Osteoporosis Maternal Grandmother Lung cancer Paternal Grandfather CVD (cardiovascular disease) Myocardial infarction Maternal Uncle Stomach cancer Sister Myocardial infarction Other Mental health disorder Social History Housing: House Alcohol intake: never Patient Tobacco Use Status: Never used Tobacco e-Cigarette/Vaping Use: Never Used Second Hand Smoke Exposure: No Current occupational status: employed Sexual orientation: Straight/Heterosexual Gender identity: Female Cognitive needs: No Hearing needs: No Vision needs: No Female Reproductive History Menstrual Age of Menarche: 15 Questionnaire PHQ-9 Over the last 2 weeks, how often have you been bothered by any of the following problems? 1. Little interest or pleasure in doing things: several days 2. Feeling down, depressed, or hopeless: several days 3. Trouble falling or staying asleep, or sleeping too much: more than half the days 4. Feeling tired or having little energy: more than half the days 5. Poor appetite or overeating: more than half the days 6. Feeling bad about yourself - or that you are a failure or have let yourself or your family down: several days 7. Trouble concentrating on things, such as reading the newspaper or watching television: several days 8. Moving or speaking so slowly that other people could have noticed. Or the opposite - being so fidgety or restless that you have been moving around a lot more than usual: several days 9. Thoughts that you would be better off or of hurting yourself in some way: several days Total score: 12 Depression Screening Interpretation: Negative Depression Screening Done: Yes 73899 - PHQ-9 Billing: Yes Source: Developed by Drs. Taiwo King, Aury Parsons, Serge Tesfaye and colleagues, with an educational jessica from [employer]. Thrive Questionnaire Date Thrive assessed: 03/10/24 I am a: Patient What is your living situation today?: I have a steady place to live Within the past 12 months, did the food you bought not last and you didn't have the money to get more?: Never true Within the past 12 months, did you worry whether your food would run out before you got money to buy more?: Never true Do you have trouble paying for medicines?: No Do you have trouble getting transportation to medical appointments?: No Do you have trouble paying your heating and electricity bill?: No Do you have trouble taking care of your child, family member or friend?: No Do you have trouble with day-to-day activities such as bathing, preparing meals, shopping, managing finances, etc.?: No Are you currently unemployed and looking for a job?: No Are you interested in more education?: No Please select the resources that you would like help with: None Currently or been in a relationship where the following occur: no concerns reported THRIVE Score: 0 AUDIT C Alcohol Use Questionnaire (AUDIT-C) 1. How often do you have a drink containing alcohol?: Never 3. How often do you have six or more drinks on one occasion?: Never Total Score: 0 Score Reviewed/Action Taken: No MADI-7 AMB Questionnaire MADI-7 Date MADI - 7 assessed: 03/10/24 Feeling nervous, anxious, or on edge: 1 = Several days Not being able to stop or control worryin = Several days Worrying too much about different things: 1 = Several days Trouble relaxin = Several days Being so restless that it is hard to sit still: 1 = Several days Becoming easily annoyed or irritable: 1 = Several days Feeling afraid as if something awful might happen: 1 = Several days Total MADI-7 score (0-4 normal; 5-9 mild; 10-14 moderate; 15-21 severe): 7 Source: Developed by Drs. Taiwo King, Aury Parsons, Serge Tesfaye and colleagues, with an educational jessica from [employer]. MADI-7 Assessment Billing MADI-7 Assessment Tool: MADI-7 Assessment 04617 Review of Systems Const Denies poor appetite and Denies weakness Eyes Denies no additional complaints ENT Reports Normal hearing present, Denies dizziness, Denies nasal congestion, Denies tinnitus and Denies sore throat Card Denies chest pain, Denies syncope, Denies rapid heart rate and Denies dyspnea Resp Denies cough and Denies dyspnea GI Denies change in stool character, Reports constipation, Denies diarrhea, Denies nausea and Denies vomiting Denies urinary frequency, Denies difficulty voiding and Denies dysuria Neuro Reports Normal hearing present, Denies confusion, Denies dizziness, Denies syncope and Denies weakness Psych Denies confusion Physical exam (Primary Care) Vital Signs: Last Vital Signs Pulse 100 03/10/24 10:11 BP 110/82 03/10/24 10:11 Pulse Ox 97 03/10/24 10:11 Oxygen Delivery Method Room Air 03/10/24 10:11 BMI result Body Mass Index 33.8 Tobacco/Smoking Status: Tobacco use Status Tobacco use date assessed 03/10/24 03/10/24 10:12 Patient Tobacco Use Status Never used Tobacco 03/10/24 10:12 Tobacco use type 12/04/23 08:53 e-Cigarette/Vaping Use Never Used 03/10/24 10:12 PHQ-9: PHQ-9 Score PHQ-9: Total score 12 03/10/24 10:28 Depression Screening Interpretation: Negative Thrive Assessment: Date of Thrive Assessment Date Thrive assessed 03/10/24 03/10/24 10:28 Currently or been in a relationship where the following occur: no concerns reported Const General: No confusion Orientation/consciousness: No confusion HENMT Head: Yes normocephalic Ears: external ears normal and TM's normal bilaterally Face and sinus: Yes normal facial exam Mouth: moist mucous membranes Throat: Yes tonsils normal Eyes Conjunctivae: conjunctivae normal Pupils: Equal, round and reactive pupils present and Pupil accommodation reflex normal Direct Ophthalmoscopy: normal light reflex Neck Neck: No lymphadenopathy Thyroid: Thyroid normal Chest Chest palpation & inspection: normal inspection of the chest Resp Effort & Inspection: normal respiratory effort and no audible wheezes Auscultation: clear to auscultation bilaterally, no crackles, no wheezes and lung sounds not diminished Cardio Rate: regular rate Rhythm: regular rhythm Peripheral pulses: radial pulses present and dorsalis pedis present GI Palpation (GI): no masses Auscultation: normal bowel sounds and normoactive bowel sounds Rectal Exam - Female: deferred Skin General skin exam: no rashes or lesions noted Rashes: no rashes Neuro General: No confusion Cranial nerves: Yes Equal, round and reactive pupils present and Yes Normal hearing present Cognition (Neuro): normal cognition Gait exam (Neuro): Normal gait present Motor exam (neuro): 5/5 motor strength present throughout Deep tendon reflexes (DTR's): Right brachioradialis reflex intensity grade: 2+, Left brachioradialis reflex intensity grade: 2+, Right patellar reflex intensity grade: 2+ and Left patellar reflex intensity grade: 2+ Extrem General: No edema Assessment and Plan Assessment & Plan (1) Annual physical exam: Code(s): Z00.00 - Encounter for general adult medical examination without abnormal findings (2) Obesity (BMI 30.0-34.9): Code(s): E66.9 - Obesity, unspecified Plan: Diet and exercise (3) Asthma: Code(s): J45.909 - Unspecified asthma, uncomplicated Qualifiers: Asthma severity: mild Asthma persistence: intermittent Asthma complication type: uncomplicated Qualified Code(s): J45.20 - Mild intermittent asthma, uncomplicated Plan: Continue with albuterol inhaler as needed (4) Migraine: Code(s): G43.909 - Migraine, unspecified, not intractable, without status migrainosus Plan: Have adequate sleep, eat healthy and keep active (5) Colon cancer screening: Code(s): Z12.11 - Encounter for screening for malignant neoplasm of colon (6) Generalized anxiety disorder: Code(s): F41.1 - Generalized anxiety disorder Orders: Orders Complete Blood Count Auto Diff Today Z00.00 - Encounter for general adult medical examination without abnormal findings Free T4 (Free Thyroxine) Today Z00.00 - Encounter for general adult medical examination without abnormal findings Vitamin B12 and Folate Today Z00.00 - Encounter for general adult medical exami [facility] without abnormal findings Vitamin D 25-OH Total Today Z00.00 - Encounter for general adult medical examination without abnormal findings Comprehensive Met. Panel Today Z00.00 - Encounter for general adult medical examination without abnormal findings Thyroid Stimulating Hormone Today Z00.00 - Encounter for general adult medical examination without abnormal findings Lipid Panel Today E78.00 - Pure hypercholesterolemia, unspecified, Z00.00 - Encounter for general adult medical examination without abnormal findings Referrals Gastroenterology Referral Z12.11 - Encounter for screening for malignant neoplasm of colon Medications: New fluticasone propionate 110 mcg/actuation 2 inhalations inhalation BID 12 grams 12RF J45.20 - Mild intermittent asthma, uncomplicated bupropion HCl SR (Wellbutrin SR) 100 mg PO BEDTIME 30 tabs 3RF F41.1 - Generalized anxiety disorder Coding Level of Care Code Est Pt Prev Care 40-64y(57126) Diagnoses Annual physical exam Z00.00 Obesity (BMI 30.0-34.9) E66.9 Mild intermittent asthma without complication J45.20 Asthma severity: mild Asthma persistence: intermittent Asthma complication type: uncomplicated Migraine G43.909 Colon cancer screening Z12.11 Generalized anxiety disorder F41.1 Additional Codes MADI-7 Assessment Billing - MADI-7 Assessment Tool: MADI-7 Assessment [id number] ([id number])
== END 2024-03-10 10:56 | disposition home or self-care (01) ==
PROVIDERS: Visit Provider Internal Medicine
DX: Z00.00 Encounter for general adult medical examination without abnormal findings (principal); J45.20 Mild intermittent asthma, uncomplicated; G43.909 Migraine, unspecified, not intractable, without status migrainosus; F41.1 Generalized anxiety disorder
CPT/HCPCS: 99396

== ENCOUNTER 2024-03-31 14:21 | Outpatient (AMB) | payer OTHER, SELFPAY ==
--- NOTE | 2024-03-31 14:28 | A.OFFVIS_ITS ---
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 Doing well with no concerns. She tries to eat healthy and stays active with exercise. Random light bleeding or spotting with the Mirena IUD and occasional left or right ovarian pain. History of small fibroid, and small corpus luteum cyst in the left on the right a 3.2 cm simple cyst. Patient has a follow up on the fibroid evaluation for stabilization to be scheduled in June. Currently is sexually active. She denies vaginal itching and irritation. STI screening offered; she declines. Denies family history of breast, ovarian or colon cancer. Last pap smear 2021, negative. Mammogram: 2022. [facility] Medical History (Updated 03/31/24 @ 15:18 by Gayathri Aguayo CNM) IUD (intrauterine device) in place Fibroid Colon cancer screening Obese Dietary counseling Elevated bilirubin Pelvic pain in female Encounter for annual routine gynecological examination Adult general medical exam Screening for hyperlipidemia Screening for diabetes mellitus Screening for hypothyroidism Concussion Rhinitis Headache Status post fall Breast cancer screening by mammogram Annual physical exam COVID-19 virus infection HPV (human papilloma virus) infection Right arm fracture Allergic rhinitis Migraine Asthma Surgical History History of surgery on arm Family History Father Alzheimers disease Mother Hypertension Osteoporosis Maternal Grandmother Lung cancer Paternal Grandfather CVD (cardiovascular disease) Myocardial infarction Maternal Uncle Stomach cancer Sister Myocardial infarction Other Mental health disorder Social History Household Members: Children Housing: House Alcohol intake: never Patient Tobacco Use Status: Never used Tobacco e-Cigarette/Vaping Use: Never Used Second Hand Smoke Exposure: No Current occupational status: employed 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 Sexually active: Yes Sexual orientation: Straight/Heterosexual Gender identity: Female Cognitive needs: No Hearing needs: No Vision needs: No Female Reproductive History Menstrual Age of Menarche: 15 control method: progestin IUCD (Mirena IUD 10/2020) Total pregnancies: 2 Full term: 2 Number of Living Children: 2 Date of last pap smear: 03/19/22 Date of Mammogram: 07/10/23 Review of Systems Const All systems reviewed & are unremarkable except as noted in HPI and below Reports as per HPI Eyes Reports no additional complaints ENT Reports no additional complaints Card Reports no additional complaints Resp Reports no additional complaints GI Reports as per HPI and Reports no additional complaints Reports as per HPI Musc Reports no additional complaints Skin/Breast Reports as per HPI Neuro Reports no additional complaints Psych Reports no additional complaints Endo Reports no additional complaints Renato/Lymph Reports no additional complaints Aller/Immun Reports no additional complaints Physical Exam Vital Signs: Last Vital Signs BP 118/68 03/31/24 14:32 BMI result Body Mass Index 33.7 Const General: cooperative, healthy appearing, no acute distress, well developed and alert Orientation/consciousness: patient oriented x3 HEENT Head: Yes normal to inspection Eyes General: appearance normal, both eyes and all related structures Neck Neck: Yes normal visual inspection Thyroid: Thyroid normal Chest Chest palpation & inspection: normal inspection of the chest and other (no puckering, dimpling, peau de orange, retraction, discharge, masses) Breast/axilla inspection: normal inspection of the breasts Breast/axilla palpation: normal palpation of the breasts Resp Effort & Inspection: normal respiratory effort GI Inspection: Yes normal to inspection Palpation (GI): Soft to palpation Rectal Exam - Female: deferred General: Yes bladder normal to palpation External Female Exam: normal external appearance and normal appearance of the urethra Speculum Exam - Vagina: normal appearance of the vagina, normal palpation and normal vaginal discharge Speculum Exam - Cervix: normal appearance of the cervix, normal palpation and Other cervical findings present (IUD strings tease down with a Cytobrush ) Bimanual exam- vagina & uterus: normal bimanual exam, normal palpation, uterine size normal, bladder normal to palpation, normal palpation and non-tender Bimanual Exam- Adnexa, other: no masses Skin General skin exam: no rashes or lesions noted Rashes: no rashes Neuro General: patient oriented x3 Cognition (Neuro): normal cognition Extrem General: Yes normal to inspection Psych Attitude: cooperative Thought process: Normal thought process present Assessment & Plan Assessment & Plan (1) Encounter for well woman exam with routine gynecological exam: Code(s): Z01.419 - Encounter for gynecological examination (general) (routine) without abnormal findings Plan Discussed: Current recommendations for pap smears per ASCCP guidelines. Breast awareness and periodic breast exams. Maintain a healthy lifestyle including a well balanced diet and routine exercise. Follow up in June pending her next ultrasound appointment. To call sooner if there is any abdominal bloating pressure or increase in pain in the pelvic area. Mammogram yearly. Colonoscopy >45, or at risk sooner. Patient verbalizes understanding and agrees to the plan of care. She was given opportunity to ask questions and all questions were answered to the best of my ability. 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 This note is constructed using voice recognition software. While every effort has been made to ensure accuracy, physician relations specialist errors may have been included. Coding Level of Care Code Est Pt Prev Care 40-64y(69953) Diagnoses Encounter for well woman exam with routine gynecological exam Z01.419
[2024-03-31 14:32] VITALS: BP 118/68; BMI 33.7
== END 2024-03-31 15:26 | disposition home or self-care (01) ==
LOC: HO.HWS 14:21
PROVIDERS: PCP Internal Medicine; Visit Provider Advanced Practice Midwife
DX: Z01.419 Encounter for gynecological examination (general) (routine) without abnormal findings (principal)
CPT/HCPCS: 99396

== ENCOUNTER → 2024-03-31 14:21 | Outpatient (BNVA) | payer OTHER, SELFPAY | PROVIDERS: PCP Internal Medicine; Visit Provider Advanced Practice Midwife | DX: Z01.419 Encounter for gynecological examination (general) (routine) without abnormal findings (principal) | CPT/HCPCS: 99396 ==

== ENCOUNTER 2024-07-04 10:53 | Outpatient (REF) | payer OTHER, SELFPAY ==
--- NOTE | ~2024-07-04 | US_ITS ---
EXAMINATION: US PELVIS CLINICAL INFORMATION: Benign neoplasm of connective tissue and other soft tissues. COMPARISON: Pelvic ultrasound 12/17/2023 TECHNIQUE: Ultrasound of the pelvis is performed using both transabdominal and transvaginal transducers along with Doppler. Transvaginal imaging is performed due to inadequate visualization transabdominally. FINDINGS: UTERUS: The uterus is anteverted and measures 9.5 x 3.9 x 6.9 cm. The double wall endometrial thickness is 7 mm. An IUD is present in good position in the endometrial cavity. The uterus is smooth in contour and has normal myometrial echogenicity. A single uterine fibroid is present which has increased in size from 1.3 x 1.4 x 1.3 cm to 2.3 x 1.4 x 1.9 cm. ADNEXA: Both ovaries are visualized. There is normal color flow to the adnexa. There is no ovarian torsion. A small amount of free pelvic fluid. Right ovary measures 3.0 x 1.8 x 1.0 cm for a volume of 2.8 mL which includes an involuting 1.0 x 0.4 x 0.8 cm cyst. Left ovary measures 6.4 x 4.5 x 4.1 cm for a volume of 62 mL which includes a 4.3 x 3.2 x 3.7 cm benign simple cyst along with a 3.6 x 2.4 x 3.7 cm cyst which appears complex with septations and possibly thickened vascular wall. Incidental note is made of a ureterocele bulging into the bladder on the left. US/US pelvic and transvaginal IMPRESSION: 1. A single uterine fibroid is present which has increased in size. 2. IUD in good position. 3. Bilateral ovarian cysts. For the complex cyst on the left, a follow-up ultrasound in 3 months is recommended to document resolution. 4. Left-sided probable ureterocele. Electronically signed by: Johnny Ferrer MD 07/19/2024 04:14 PM EDT
== END 2024-07-04 10:54 | disposition home or self-care (01) ==
LOC: HO.US 10:53
PROVIDERS: PCP Internal Medicine; Visit Provider Advanced Practice Midwife
DX: D21.9 Benign neoplasm of connective and other soft tissue, unspecified (principal)
CPT/HCPCS: 76830; 76856

== ENCOUNTER 2024-07-11 11:43 | Outpatient (REF) | payer OTHER, SELFPAY ==
--- NOTE | ~2024-07-11 | MM_ITS ---
EXAMINATION: MM SCREENING DIGITAL BREAST TOMOSYNTHESIS, BILATERAL CLINICAL INFORMATION: Screening. Asymptomatic. COMPARISON: Mammography: This study is compared with prior exams dating back to TECHNIQUE: Digital breast tomosynthesis is performed in both the craniocaudal and mediolateral oblique views along with computer-aided detection (CAD). Synthesized 2D images are generated from the tomosynthesis. FINDINGS: The breasts are heterogeneously dense, which may obscure small masses (ACR BI-RADS breast composition Category c). Right: Developing focal asymmetry in the upper outer breast posterior depth. No suspicious calcifications or other abnormal findings. Left: There are no significant masses, abnormal calcifications, or other abnormalities. MM/MM tomosynthesis screening BI IMPRESSION: Left: No mammographic evidence of malignancy. Right: Focal asymmetry upper outer breast posterior depth. Additional imaging and ultrasound are recommended at this time. ASSESSMENT: BI-RADS BI-RADS 0 - Incomplete: Needs additional Imaging. RECOMMENDATION: 1. Additional views of the right breast 2. Targeted ultrasound if warranted after review of the additional views. 3. Radiology department staff will contact the patient for additional imaging. Additional Imaging required This examination should not preclude the clinical evaluation of a suspicious palpable abnormality. This patient's information was entered into a reminder system with a target due date for their next mammogram. Electronically signed by: Yamilet Abdalla DO 08/05/2024 10:27 AM EDT
== END 2024-07-11 11:44 | disposition home or self-care (01) ==
LOC: HO.MAMMO 11:43
PROVIDERS: PCP Internal Medicine; Visit Provider Internal Medicine
DX: Z12.31 Encounter for screening mammogram for malignant neoplasm of breast (principal)
CPT/HCPCS: 77063; 77067

== ENCOUNTER → 2024-07-11 11:45 | Outpatient (BNV) | payer OTHER, SELFPAY | PROVIDERS: PCP Internal Medicine; Visit Provider Internal Medicine | DX: Z12.31 Encounter for screening mammogram for malignant neoplasm of breast (principal) | CPT/HCPCS: 77063; 77067 ==

== ENCOUNTER 2024-07-21 15:38 | Outpatient (AMB) | payer OTHER, SELFPAY ==
[2024-07-21 15:40] VITALS: BP 114/70; PULSE 85; BMI 33.8
--- NOTE | 2024-07-21 15:40 | A.OFFPC_ITS ---
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 Patient is here for follow-up. Mammogram is up-to-date. Patient has a schedule with Gastroenterology in September. [facility] Medical History (Updated 07/21/24 @ 16:01 by Nadia Omalley MD) IUD (intrauterine device) in place Fibroid Colon cancer screening Obese Dietary counseling Elevated bilirubin Pelvic pain in female Encounter for annual routine gynecological examination Adult general medical exam Screening for hyperlipidemia Screening for diabetes mellitus Screening for hypothyroidism Concussion Rhinitis Headache Status post fall Breast cancer screening by mammogram Annual physical exam COVID-19 virus infection HPV (human papilloma virus) infection Right arm fracture Allergic rhinitis Migraine Asthma Surgical History History of surgery on arm Family History Father Alzheimers disease Mother Hypertension Osteoporosis Maternal Grandmother Lung cancer Paternal Grandfather CVD (cardiovascular disease) Myocardial infarction Maternal Uncle Stomach cancer Sister Myocardial infarction Other Mental health disorder Social History Household Members: Children Housing: House Alcohol intake: never Patient Tobacco Use Status: Never used Tobacco Tobacco use type: Cigarette e-Cigarette/Vaping Use: Never Used Second Hand Smoke Exposure: No Current occupational status: employed 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 1. Little interest or pleasure in doing things: several days 2. Feeling down, depressed, or hopeless: several days 3. Trouble falling or staying asleep, or sleeping too much: more than half the days 4. Feeling tired or having little energy: more than half the days 5. Poor appetite or overeating: more than half the days 6. Feeling bad about yourself - or that you are a failure or have let yourself or your family down: several days 7. Trouble concentrating on things, such as reading the newspaper or watching television: several days 8. Moving or speaking so slowly that other people could have noticed. Or the opposite - being so fidgety or restless that you have been moving around a lot more than usual: several days 9. Thoughts that you would be better off or of hurting yourself in some way: several days Total score: 12 Depression Screening Interpretation: Negative Depression Screening Done: Yes 26163 - PHQ-9 Billing: Yes Source: Developed by Drs. Taiwo King, Aury Parsons, Serge Tesafye and colleagues, with an educational jessica from [employer]. Thrive Questionnaire Date Thrive assessed: 03/10/24 AUDIT C Alcohol Use Questionnaire (AUDIT-C) 1. How often do you have a drink containing alcohol?: Never 3. How often do you have six or more drinks on one occasion?: Never Total Score: 0 Score Reviewed/Action Taken: No MADI-7 AMB Questionnaire MADI-7 Date MADI - 7 assessed: 03/10/24 Source: Developed by Drs. Taiwo King, Aury Parsons, Serge Tesfaye and colleagues, with an educational jessica from [employer]. Physical exam (Primary Care) Vital Signs: Last Vital Signs Pulse 85 07/21/24 15:40 BP 114/70 07/21/24 15:40 Oxygen Delivery Method Room Air 07/21/24 15:40 BMI result Body Mass Index 33.8 Tobacco/Smoking Status: Tobacco use Status Tobacco use date assessed 03/10/24 07/21/24 15:44 Patient Tobacco Use Status Never used Tobacco 07/21/24 15:44 Tobacco use type Cigarette 07/21/24 15:44 e-Cigarette/Vaping Use Never Used 07/21/24 15:44 PHQ-9: PHQ-9 Score PHQ-9: Total score 12 07/21/24 15:44 Depression Screening Interpretation: Negative Thrive Assessment: Date of Thrive Assessment Date Thrive assessed 03/10/24 07/21/24 15:44 Const General: alert; No acute distress Eyes Conjunctivae: conjunctivae normal Resp Auscultation: clear to auscultation bilaterally Cardio Rate: regular rate Rhythm: regular rhythm GI Inspection: Yes normal to inspection Extrem General: Yes normal to inspection and No edema Assessment and Plan Assessment & Plan (1) Obesity (BMI 30.0-34.9): Code(s): E66.9 - Obesity, unspecified Plan: Diet and exercise (2) Migraine: Code(s): G43.909 - Migraine, unspecified, not intractable, without status migrainosus Plan: Patient is advised to eat healthy, keep well hydrated, keep active and have adequate sleep. (3) Asthma: Code(s): J45.909 - Unspecified asthma, uncomplicated Qualifiers: Asthma severity: mild Asthma persistence: intermittent Asthma complication type: uncomplicated Qualified Code(s): J45.20 - Mild intermittent asthma, uncomplicated Plan: Albuterol inhaler as needed and Flovent prescription continue for control. Rinse mouth after using. (4) Generalized anxiety disorder: Code(s): F41.1 - Generalized anxiety disorder Plan: Continue with Wellbutrin (5) Ovarian cyst: Code(s): N83.209 - Unspecified ovarian cyst, unspecified side Plan: will do ff up pelvic US in 09/2024 (6) Uterine fibroid: Code(s): D25.9 - Leiomyoma of uterus, unspecified Plan: monitor for now (7) Ureterocele: Code(s): N28.89 - Other specified disorders of kidney and ureter Orders: Referrals 2 Urology Referral N28.89 - Other specified disorders of kidney and ureter Medications: Refilled fluticasone propionate 110 mcg/actuation 2 inhalations inhalation BID 12 grams 12RF J45.20 - Mild intermittent asthma, uncomplicated cyanocobalamin (vitamin B-12) 1,000 mcg PO DAILY 90 caps 3RF E53.8 - Deficiency of other specified B group vitamins bupropion HCl SR (Wellbutrin SR) 100 mg PO BEDTIME 90 tabs 1RF F41.1 - Generalized anxiety disorder albuterol sulfate 90 mcg/actuation (Ventolin HFA) 2 puffs inhalation Q6H PRN 18 ea 3RF for muscle spasm J45.909 - Unspecified asthma, uncomplicated cholecalciferol (vitamin D3) 50 mcg PO DAILY 90 tabs 0RF R79.89 - Other specified abnormal findings of blood chemistry Coding Level of Care Code Est Pt Level 4 (09102) Diagnoses Obesity (BMI 30.0-34.9) E66.9 Migraine G43.909 Mild intermittent asthma without complication J45.20 Asthma severity: mild Asthma persistence: intermittent Asthma complication type: uncomplicated Generalized anxiety disorder F41.1 Ovarian cyst N83.209 Uterine fibroid D25.9 Ureterocele N28.89
== END 2024-07-21 16:08 | disposition home or self-care (01) ==
PROVIDERS: PCP Internal Medicine; Visit Provider Internal Medicine
DX: G43.909 Migraine, unspecified, not intractable, without status migrainosus (principal); J45.20 Mild intermittent asthma, uncomplicated; F41.1 Generalized anxiety disorder; N83.209 Unspecified ovarian cyst, unspecified side; D25.9 Leiomyoma of uterus, unspecified; N28.89 Other specified disorders of kidney and ureter
CPT/HCPCS: 99214

== ENCOUNTER 2024-07-26 10:50 | Outpatient (REF) | payer OTHER, SELFPAY ==
[2024-07-26 11:03] LABS: MANUAL DIFF FLAG NO
[2024-07-26 11:25] LABS: Basophils Absolute Auto 0.1 X10*3/uL (0.0-0.2); Basophils Percent Auto 0.9 % (0-2); Eosinophils Absolute Auto 0.3 X10*3/uL (0.0-0.4); Eosinophils Percent Auto 4.3 % (0-4); Hematocrit 42.3 % (37.0-47.0); Hemoglobin 14.4 g/dl (12.0-16.0); Imm Gran Abs Auto 0.02 X10*3/uL (0.00-0.03); Imm Gran Pct Auto 0.3 % (0.0-0.4); Lymphocytes Absolute Auto 1.4 X10*3/uL (1.2-4.9); Lymphocytes Percent Auto 20.7 % (20-40); Mean Corpuscular Hemoglobin 32.7 pg (27.0-33.0); Mean Corpuscular Volume 96.1 fL (80.0-98.0); Mean Platelet Volume 9.5 fL (9.4-12.3); Monocytes Absolute Auto 0.5 X10*3/uL (0.1-1.2); Monocytes Percent Auto 7.2 % (2-11); Neutrophils Absolute Auto 4.3 x10*3/uL (2.0-8.3); Neutrophils Percent Auto 66.6 % (45-73); Platelet Count 332 X10*3/uL (160-400); Red Cell Distribution Width 12.4 % (11.0-16.0); White Blood Count 6.5 X10*3/uL (4.8-10.8)
[2024-07-26 12:18] LABS: Alanine Aminotransferase 12 U/L (0-31); Albumin Level 4.1 g/dL (3.5-5.0); Alkaline Phosphatase 106 U/L (39-117); Anion Gap 9 (12-20); Aspartate Amino Transferase 14 U/L (5-31); Bilirubin Total 1.2 mg/dL (0.0-1.0); Blood Urea Nitrogen 10 mg/dL (9-16); Calcium 9.2 mg/dL (8.4-10.2); Carbon Dioxide 26 mmol/L (22-29); Chloride 107 mmol/L (96-108); Cholesterol 184 mg/dL (<200); Estimated Glomerular Filt Rate > 60; Glucose Random 93 mg/dL (60-115); HDL Cholesterol 59 mg/dL (>40); LDL Cholesterol Calculated 110 mg/dL (<100); Potassium 3.9 mmol/L (3.3-5.1); Sodium 138 mmol/L (135-145); Thyroid Stimulating Hormone 1.17 uIU/mL (0.32-4.0); Total Protein 7.2 g/dL (6.5-8.0); Triglycerides 79 mg/dL (<150); Vitamin D 25-OH Total 30.7 ng/mL (>30)
[2024-07-26 12:19] LABS: Vitamin B12 593 pg/mL (200-900)
== END 2024-07-26 10:51 | disposition home or self-care (01) ==
LOC: HO.LAB 10:50
PROVIDERS: PCP Internal Medicine; Visit Provider Internal Medicine
DX: Z00.00 Encounter for general adult medical examination without abnormal findings (principal); E78.00 Pure hypercholesterolemia, unspecified
CPT/HCPCS: 36415; 80053; 80061; 82306; 82607; 82746; 84439; 84443; 85025

== ENCOUNTER 2024-08-02 10:38 | Outpatient (AMB) | payer OTHER, SELFPAY ==
--- NOTE | 2024-08-02 10:40 | MHC.OFFVIS ---
Vital Signs 08/02/24 10:41 BP 120/80 Intake Visit Reasons: ultra sound follow up/DO NOT RS [employer]: [employer] Present Allergies Seasonal Allergies Allergy (Severe, Verified 08/02/24 10:41) Itchy Eyes Is last menstrual period known: Yes HPI Comments Details: Patient is here today for a follow up on her pelvic ultrasound, history of pelvic pain, ovarian cyst and fibroids. She reports left-sided intermittent discomfort. [facility] Medical History (Updated 08/02/24 @ 11:03 by Gayathri Aguayo CNM) IUD (intrauterine device) in place Fibroid Colon cancer screening Obese Dietary counseling Elevated bilirubin Pelvic pain in female Encounter for annual routine gynecological examination Adult general medical exam Screening for hyperlipidemia Screening for diabetes mellitus Screening for hypothyroidism Concussion Rhinitis Headache Status post fall Breast cancer screening by mammogram Annual physical exam COVID-19 virus infection HPV (human papilloma virus) infection Right arm fracture Allergic rhinitis Migraine Asthma Surgical History History of surgery on arm Family History Father Alzheimers disease Mother Hypertension Osteoporosis Maternal Grandmother Lung cancer Paternal Grandfather CVD (cardiovascular disease) Myocardial infarction Maternal Uncle Stomach cancer Sister Myocardial infarction Other Mental health disorder Social History Household Members: Children Housing: House Alcohol intake: never Patient Tobacco Use Status: Never used Tobacco Tobacco use type: Cigarette e-Cigarette/Vaping Use: Never Used Second Hand Smoke Exposure: No Current occupational status: employed 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 Sexual orientation: Straight/Heterosexual Gender identity: Female Cognitive needs: No Hearing needs: No Vision needs: No Female Reproductive History Menstrual Age of Menarche: 15 Review of Systems Const All systems reviewed & are unremarkable except as noted in HPI and below Endo Reports no additional complaints Physical Exam Vital Signs: Last Vital Signs BP 120/80 08/02/24 10:41 Const General: cooperative, healthy appearing and no acute distress Psych Appearance: well kempt Attitude: cooperative Thought process: Normal thought process present Results Reviewed Results Reviewed: [address] [address] Ultrasound Report Signed Patient: Serenity Jack I MR#: [id number] : 1975 Acct:[id number] Age/Sex: 49 / F ADM Date: 07/04/24 Loc: HO.US Attending Dr: Gayathri Aguayo CNM Ordering Physician: Gayathri Aguayo CNM Date of Service: 07/04/24 Procedure(s): US pelvic and transvaginal Accession Number(s): [id number] cc: Gayathri Aguayo CNM; Po,Nadia Ray MD~ EXAMINATION: US PELVIS CLINICAL INFORMATION: Benign neoplasm of connective tissue and other soft tissues. COMPARISON: Pelvic ultrasound 12/17/2023 TECHNIQUE: Ultrasound of the pelvis is performed using both transabdominal and transvaginal transducers along with Doppler. Transvaginal imaging is performed due to inadequate visualization transabdominally. FINDINGS: UTERUS: The uterus is anteverted and measures 9.5 x 3.9 x 6.9 cm. The double wall endometrial thickness is 7 mm. An IUD is present in good position in the endometrial cavity. The uterus is smooth in contour and has normal myometrial echogenicity. A single uterine fibroid is present which has increased in size from 1.3 x 1.4 x 1.3 cm to 2.3 x 1.4 x 1.9 cm. ADNEXA: Both ovaries are visualized. There is normal color flow to the adnexa. There is no ovarian torsion. A small amount of free pelvic fluid. Right ovary measures 3.0 x 1.8 x 1.0 cm for a volume of 2.8 mL which includes an involuting 1.0 x 0.4 x 0.8 cm cyst. Left ovary measures 6.4 x 4.5 x 4.1 cm for a volume of 62 mL which includes a 4.3 x 3.2 x 3.7 cm benign simple cyst along with a 3.6 x 2.4 x 3.7 cm cyst which appears complex with septations and possibly thickened vascular wall. Incidental note is made of a ureterocele bulging into the bladder on the left. US/US pelvic and transvaginal IMPRESSION: 1. A single uterine fibroid is present which has increased in size. 2. IUD in good position. 3. Bilateral ovarian cysts. For the complex cyst on the left, a follow-up ultrasound in 3 months is recommended to document resolution. 4. Left-sided probable ureterocele. Electronically signed by: Johnny Ferrer MD 07/19/2024 04:14 PM EDT Dictated By: Johnny Ferrer MD Signed By: <Electronically signed by Johnny Ferrer MD in OV> 07/19/24 1614 DD/ 1107 TD/TT: 07/04/24 1125 Facility Security Officer: AIDAN Assessment & Plan Assessment & Plan (1) Complex ovarian cyst: Code(s): N83.299 - Other ovarian cyst, unspecified side Category: Medical (2) Encounter to discuss test results: Code(s): Z71.2 - Person consulting for explanation of examination or test findings (3) Uterine fibroid: Code(s): D25.9 - Leiomyoma of uterus, unspecified Category: Medical Qualifiers: Uterine leiomyoma location: unspecified location Qualified Code(s): D25.9 - Leiomyoma of uterus, unspecified Plan Discussed: Ultrasound findings, reviewed details including complex ovarian cysts, fibroids, IUD, urology concerns. She has a urology consult appointment on September 07. Counseled regarding findings of: Complex ovarian cyst, which is often benign, and most resolve on their own overtime. Some develop into premalignant or malignant tumors. Limitations of testing for diagnostic purposes. Further monitoring and evaluation is recommended with US, possible CT, or MRI study. If persists, or is indicated (Ca-125, Carbohydrate Antigen 19-9, & Carcinoembryonic Antigen) labs will be ordered and referral to [facility] or general gynecology for MD care if indicated for possible surgical consult. Follow up in person for test results. Monitoring of fibroids. Pelvic warnings of increased pain to go the emergency room for immediate evaluation to rule out ovarian torsion. [id number]-[id number] self-help comfort measures including Tylenol and/or heating pad. Plan repeat ultrasound in 2 weeks. Follow up appointment to discuss results pending. All of her questions and concerns were addressed to the best of my ability and shared decision making. She is agreeable to the plan of care. This note is constructed using voice recognition software. While every effort has been made to ensure accuracy, sas programmer errors may have been included. a consult appointment as scheduled September 07 with Urology. Counseled regarding findings of: Complex ovarian cyst, which is often benign, and most resolve on their own overtime. Some develop into premalignant or malignant tumors. Limitations of testing for diagnostic purposes. Further monitoring and evaluation is recommended with US, possible CT, or MRI study. If persists, or is indicated (Ca-125, Carbohydrate Antigen 19-9, & Carcinoembryonic Antigen) labs will be ordered and referral to [facility] or general gynecology for MD care if indicated for possible surgical consult. Follow up in person for test results. Monitoring of fibroids. Warnings of ovarian torsion to call and be seen in the ED if pain increases for immediate evaluation, use of [id number]-[id number] medications as directed, heating pad p.r.n.. All of her questions and concerns were addressed to the best of my ability and shared decision making. She is agreeable to the plan of care. This note is constructed using voice recognition software. While every effort has been made to ensure accuracy, sas programmer errors may have been included. Orders: Orders US pelvic and transvaginal 2 Weeks D25.9 - Leiomyoma of uterus, unspecified, N83.299 - Other ovarian cyst, unspecified side Coding Level of Care Code Est Pt Level 3 (43990) Diagnoses Complex ovarian cyst N83.299 Encounter to discuss test results Z71.2 Uterine leiomyoma, unspecified location D25.9 Uterine leiomyoma location: unspecified location
[2024-08-02 10:41] VITALS: BP 120/80
== END 2024-08-02 11:02 | disposition home or self-care (01) ==
LOC: HO.HWS 10:38
PROVIDERS: PCP Internal Medicine; Visit Provider Advanced Practice Midwife
DX: N83.299 Other ovarian cyst, unspecified side (principal); Z71.2 Person consulting for explanation of examination or test findings; D25.9 Leiomyoma of uterus, unspecified
CPT/HCPCS: 99213

== ENCOUNTER → 2024-08-02 10:38 | Outpatient (BNVA) | payer OTHER, SELFPAY | PROVIDERS: PCP Internal Medicine; Visit Provider Advanced Practice Midwife | DX: N83.299 Other ovarian cyst, unspecified side (principal); D25.9 Leiomyoma of uterus, unspecified; Z71.2 Person consulting for explanation of examination or test findings | CPT/HCPCS: 99212 ==

== ENCOUNTER 2024-08-16 11:16 | Outpatient (REF) | payer OTHER, SELFPAY ==
--- NOTE | ~2024-08-16 | US_ITS ---
EXAMINATION: US PELVIS CLINICAL INFORMATION: Ovarian cyst COMPARISON: July 04, 2024 TECHNIQUE: Ultrasound of the pelvis is performed using both transabdominal and transvaginal transducers along with Doppler. Transvaginal imaging is performed due to inadequate visualization transabdominally. FINDINGS: Uterus: The uterus is anteverted and measures 8.9 x 4.3 x 6.2 cm. The double wall endometrial thickness is 0.7 mm. There is IUD in good position There is single subserosal 2.0 x 1.5 x 1.7 cm leiomyoma slightly smaller than on the previous measurements. No new fibroids are identified Adnexa: Both ovaries are visualized. There is normal color flow to the adnexa. There is no ovarian torsion. There is no fluid seen in cul-de-sac. There is small simple cyst in left ovary measured 2.0 x 1.7 x 1.7 cm. Right ovary measures 2.7 x 1.9 x 2.1 cm. With a volume measured 5.6 mL Left ovary measures 4.7 x 2.7 x 2.3 cm. With a volume measured 15.3 US/US pelvic and transvaginal IMPRESSION: 1. Small subserosal uterine leiomyoma. 2. IUD in good position. 3. Small simple cyst in left ovary. Electronically signed by: Rena Wahl MD 08/31/2024 09:15 AM EDT
== END 2024-08-16 11:17 | disposition home or self-care (01) ==
LOC: HO.US 11:16
PROVIDERS: PCP Internal Medicine; Visit Provider Advanced Practice Midwife
DX: N83.299 Other ovarian cyst, unspecified side (principal); D25.9 Leiomyoma of uterus, unspecified
CPT/HCPCS: 76830; 76856

== ENCOUNTER 2024-09-14 08:56 | Outpatient (REF) | payer OTHER, SELFPAY ==
--- NOTE | ~2024-09-14 | MM_ITS ---
EXAMINATION: MM DIAGNOSTIC DIGITAL BREAST TOMOSYNTHESIS, right breast CLINICAL INFORMATION: Call back for focal asymmetry in the right breast on mammography. COMPARISON: Mammography: Available prior examinations. TECHNIQUE: Digital breast tomosynthesis is performed in both the craniocaudal and mediolateral oblique views along with computer-aided detection (CAD). Synthesized 2D images are generated from the tomosynthesis. FINDINGS: There are scattered areas of fibroglandular density (ACR BI-RADS breast composition Category b). Right: Focal asymmetry in the upper outer breast posterior depth which is increased in size compared with prior's persist on additional imaging projections. No suspicious calcifications or other abnormal findings. Limited right breast ultrasound. Targeted color Doppler ultrasound scanning in the upper outer right breast demonstrates multiple simple to minimally complicated cysts with intervening breast tissue. On one of the ascending A valuations the tissue in between the minimally complicated cysts is slightly irregular with questioned distortion. MM/MM tomosynthesis added views R IMPRESSION: Focal asymmetry upper outer breast posterior depth which is increasing in size compared with priors. While this may represent benign patch of cysts with intervening breast tissue given the interval increase in size ultrasound guided core needle biopsy is recommended at this time for confirmation. The findings and recommendations were discussed with the patient the procedure will be scheduled. ASSESSMENT: BI-RADS BI-RADS 4 - Suspicious finding RECOMMENDATION: 1 year F/U (accession [id number]), Biopsy recommended (accession [id number]) Results were provided to the patient at time of visit by the technologist. This patient's information was entered into a reminder system with a target due date for their next mammogram. Electronically signed by: Yamilet Abdalla DO 09/14/2024 10:10 AM EDT
== END 2024-09-14 08:57 | disposition home or self-care (01) ==
LOC: HO.MAMMO 08:56
PROVIDERS: PCP Internal Medicine; Visit Provider Internal Medicine
DX: N64.89 Other specified disorders of breast (principal)
CPT/HCPCS: 76642; 77061; 77065

== ENCOUNTER → 2024-09-14 09:00 | Outpatient (BNV) | payer OTHER, SELFPAY | PROVIDERS: PCP Internal Medicine; Visit Provider Internal Medicine | DX: R92.8 Other abnormal and inconclusive findings on diagnostic imaging of breast (principal) | CPT/HCPCS: 76642; 77061; 77065 ==

== ENCOUNTER 2024-09-16 08:24 | Outpatient (AMB) | payer OTHER, SELFPAY ==
[2024-09-16 08:27] VITALS: BMI 32.5
--- NOTE | 2024-09-16 08:27 | MHC.OFFVIS ---
Vital Signs 09/16/24 08:27 Height 5 ft 9 in Weight 220 lb BMI 32.5 Intake Visit Reasons: right breast us bx 9 o'clock cystic area Intake Note: This patient presents for breast consults for right breast Ultrasound guided biopsy for 9 o'clock cystic area. Pt c/o; reports last week she had alot of pain on the right breast, reports no discharge from nipple. 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 Limited right breast reveals a focal asymmetry in the upper outer left breast posterior depth which has increased in size compared to the prior studies and felt to be suspicious (BI-RADS 4). She is scheduled for a ultrasound-guided core biopsy at the [facility] on 09/20/2024. She denies a prior history of breast problems or breast surgery. Her family history is negative for breast cancer. She does have family history of lung cancer and gastric cancer. She is 2 para 2 with 2 daughters age 22 and 25. [facility] Medical History IUD (intrauterine device) in place Fibroid Colon cancer screening Obese Dietary counseling Elevated bilirubin Pelvic pain in female Encounter for annual routine gynecological examination Adult general medical exam Screening for hyperlipidemia Screening for diabetes mellitus Screening for hypothyroidism Concussion Rhinitis Headache Status post fall Breast cancer screening by mammogram Annual physical exam COVID-19 virus infection HPV (human papilloma virus) infection Right arm fracture Allergic rhinitis Migraine Asthma Surgical History History of surgery on arm Family History Father Alzheimers disease Mother Hypertension Osteoporosis Maternal Grandmother Lung cancer Paternal Grandfather CVD (cardiovascular disease) Myocardial infarction Maternal Uncle Stomach cancer Sister Myocardial infarction Other Mental health disorder Social History Household Members: Children Housing: House Alcohol intake: never Patient Tobacco Use Status: Never used Tobacco Tobacco use type: Cigarette e-Cigarette/Vaping Use: Never Used Second Hand Smoke Exposure: No Current occupational status: employed 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 Sexual orientation: Straight/Heterosexual Gender identity: Female Cognitive needs: No Hearing needs: No Vision needs: No Female Reproductive History Menstrual Age of Menarche: 15 Total pregnancies: 2 Full term: 2 Review of Systems Const All systems reviewed & are unremarkable except as noted in HPI and below Physical Exam Const General: cooperative and no acute distress Nutritional Appearance: well nourished Orientation/consciousness: patient oriented x3 Limitations: no limitations HEENT Head: Yes normocephalic and Yes atraumatic Ears: hearing grossly normal bilaterally Chest Other: Left breast: No skin change, no nipple retraction, no nipple discharge, no palpable mass, no enlarged lymph nodes. Right breast: No skin change, no nipple retraction, no nipple discharge, no palpable mass, no enlarged lymph nodes Resp Effort & Inspection: normal respiratory effort, no audible wheezes, no cough and no respiratory distress Cardio Jugular venous distension: no JVD GI Inspection: Yes normal to inspection Skin Other: Warm, dry, no rash Neuro General: patient oriented x3 Extrem General: Yes no clubbing, cyanosis or edema Assessment & Plan Assessment & Plan (1) Abnormal mammogram of right breast: Code(s): R92.8 - Other abnormal and inconclusive findings on diagnostic imaging of breast Category: Medical (2) Abnormal ultrasound of breast: Code(s): R92.8 - Other abnormal and inconclusive findings on diagnostic imaging of breast Category: Medical Plan 41-year-old female patient presenting for evaluation of recent mammogram and ultrasound which revealed a cystic density in the right breast, 09:00 o'clock position felt to be suspicious for malignancy. This had increased in size from the previous studies and ultrasound-guided core biopsy recommended. Denies a previous history of breast problems or breast surgery. Her family history is negative for breast cancer. She is scheduled for an ultrasound-guided core biopsy on 09/20/2024 at the [facility]. I recommended follow-up in a proximally 1 week following the biopsy to review the pathology results and discuss treatment options as necessary. She expressed understanding and agrees with the plan. Coding Level of Care Code New Pt Level 4 (81909) Diagnoses Abnormal mammogram of right breast R92.8 Abnormal ultrasound of breast R92.8
== END 2024-09-16 08:49 | disposition home or self-care (01) ==
LOC: HO.HGS 08:24
PROVIDERS: PCP Internal Medicine; Visit Provider Surgery
DX: R92.8 Other abnormal and inconclusive findings on diagnostic imaging of breast (principal)
CPT/HCPCS: 99204

== ENCOUNTER → 2024-09-16 08:24 | Outpatient (BNVA) | payer OTHER, SELFPAY | PROVIDERS: PCP Internal Medicine; Visit Provider Surgery | DX: L60.3 Nail dystrophy (principal); R92.8 Other abnormal and inconclusive findings on diagnostic imaging of breast; E66.9 Obesity, unspecified; Z68.32 Body mass index [BMI] 32.0-32.9, adult; G43.009 Migraine without aura, not intractable, without status migrainosus | CPT/HCPCS: 99202; 99212 ==

== ENCOUNTER 2024-09-16 08:55 | Outpatient (AMB) | payer OTHER, SELFPAY ==
--- NOTE | 2024-09-16 08:57 | MHC.PC.OV ---
Vital Signs 09/16/24 08:58 Height 5 ft 9 in Weight 219 lb 2 oz BMI 32.4 BP 110/62 Blood Pressure Location Lt brachial Position Sitting Pulse 79 Pulse Source Pulse Oximeter Pulse Oximetry (%) 97 Oxygen Delivery Method Room Air Intake Visit Reasons: toe nails falling off Intake Note: Patient is here to follow up on toe nails falling off, possible toe infection in both feet. Pt decline flu shot today. Group Reservations Coordinator Required: No Aerospace Mechanic: Not Required per policy Accompanied by: Self / Same As Patient Allergies Seasonal Allergies Allergy (Severe, Verified 09/16/24 08:58) Itchy Eyes Tobacco use date assessed: 09/16/24 Dental Screening Dental Screen Date: 03/10/24 HPI toe nails falling off HPI Details 49-year-old obese female with asthma generalized anxiety disorder coming in for an acute problem last seen in July 21 2024. Patient had a recent mammogram showing focal asymmetry in the upper outer portion of the right breast suspicious and was advised to get ultrasound-guided core biopsy this is scheduled. form for tinted windows from last year . migraine problem with a reason for photophobia. 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 [facility] Medical History IUD (intrauterine device) in place Fibroid Colon cancer screening Obese Dietary counseling Elevated bilirubin Pelvic pain in female Encounter for annual routine gynecological examination Adult general medical exam Screening for hyperlipidemia Screening for diabetes mellitus Screening for hypothyroidism Concussion Rhinitis Headache Status post fall Breast cancer screening by mammogram Annual physical exam COVID-19 virus infection HPV (human papilloma virus) infection Right arm fracture Allergic rhinitis Migraine Asthma Surgical History History of surgery on arm Family History Father Alzheimers disease Mother Hypertension Osteoporosis Maternal Grandmother Lung cancer Paternal Grandfather CVD (cardiovascular disease) Myocardial infarction Maternal Uncle Stomach cancer Sister Myocardial infarction Other Mental health disorder Social History Household Members: Children Housing: House Alcohol intake: never Patient Tobacco Use Status: Never used Tobacco Tobacco use type: Cigarette e-Cigarette/Vaping Use: Never Used Second Hand Smoke Exposure: No service: No Current occupational status: employed 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 Taiwo King, Aury Parsons, Serge Tesfaye and colleagues, with an educational jessica from [employer]. Physical exam (Primary Care) Vital Signs: Last Vital Signs Pulse 79 09/16/24 08:58 BP 110/62 09/16/24 08:58 Pulse Ox 97 09/16/24 08:58 Oxygen Delivery Method Room Air 09/16/24 08:58 BMI result Body Mass Index 32.4 Tobacco/Smoking Status: Tobacco use Status Tobacco use date assessed 09/16/24 09/16/24 09:02 Patient Tobacco Use Status Never used Tobacco 09/16/24 09:02 Tobacco use type Cigarette 09/16/24 09:02 e-Cigarette/Vaping Use Never Used 09/16/24 09:02 Thrive Assessment: Date of Thrive Assessment Date Thrive assessed 03/10/24 09/16/24 09:02 Const General: alert; No acute distress Eyes Conjunctivae: conjunctivae normal Resp Auscultation: clear to auscultation bilaterally Cardio Rate: regular rate Rhythm: regular rhythm GI Inspection: Yes normal to inspection Extrem Other: HAVE BEEN UNROOFED WELL SMALL NAIL GROWTH FROM THE NAILBED. Coding Level of Care Code Est Pt Level 4 (10228) Diagnoses Abnormal mammogram of right breast R92.8 Obesity (BMI 30.0-34.9) E66.9 Nail dystrophy L60.3 Migraine without aura and without status migrainosus, not intractable G43.009 Migraine type: migraine (< 15 days per month) without aura Status migrainosus presence: without status migrainosus Intractability: not intractable Assessment & Plan Assessment & Plan (1) Abnormal mammogram of right breast: Comment: September 14 2024Focal asymmetry upper outer breast posterior depth which is increasing in size compared with priors. While this may represent benign patch of cysts with intervening breast tissue given the interval increase in size ultrasound guided core needle biopsy is recommended at this time for confirmation. Code(s): R92.8 - Other abnormal and inconclusive findings on diagnostic imaging of breast Category: Medical Plan: Patient has a schedule ultrasound-guided biopsy of the right breast. (2) Obesity (BMI 30.0-34.9): Code(s): E66.9 - Obesity, unspecified Category: Medical Plan: Continue with diet and exercise (3) Nail dystrophy: Code(s): L60.3 - Nail dystrophy Category: Medical Plan: will send to podiatry the problem with toenails meanwhile taking biotin. PATIENT WAS ADVISED TO STOP PLACING CHEMICALS ON TOP OF THE NAIL. 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
[2024-09-16 08:58] VITALS: BP 110/62; PULSE 79; O2SAT 97; BMI 32.4
== END 2024-09-16 09:29 | disposition home or self-care (01) ==
LOC: HO.HMCH 08:55
PROVIDERS: PCP Internal Medicine; Visit Provider Internal Medicine
DX: G43.009 Migraine without aura, not intractable, without status migrainosus (principal); R92.8 Other abnormal and inconclusive findings on diagnostic imaging of breast; E66.9 Obesity, unspecified; Z68.32 Body mass index [BMI] 32.0-32.9, adult; L60.3 Nail dystrophy

== ENCOUNTER 2024-09-20 07:52 | Outpatient (REF) | payer OTHER, SELFPAY | END 2024-09-20 07:53 | disposition home or self-care (01) | LOC: HO.MAMMO 07:52 | PROVIDERS: PCP Internal Medicine; Visit Provider Surgery | DX: Z13.89 Encounter for screening for other disorder (principal) ==

== ENCOUNTER 2024-09-28 07:45 | Outpatient (AMB) | payer OTHER, SELFPAY ==
[2024-09-28 07:45] VITALS: BP 118/70; BMI 32.2
--- NOTE | 2024-09-28 07:45 | MHC.OFFVIS ---
Vital Signs 09/28/24 07:45 Height 5 ft 9 in Weight 218 lb 4.122 oz BMI 32.2 BP 118/70 Intake Visit Reasons: ultra sound follow up Steno Pool Supervisor Required: No Information Interpreted: non-clinical & clinical Obstetrics Nurse Practitioner: Obstetrics Nurse Practitioner Present Accompanied by: Self / Same As Patient Allergies Seasonal Allergies Allergy (Severe, Verified 09/28/24 07:46) Itchy Eyes Is last menstrual period known: No (mirena) HPI Comments Details: Patient is here today for ultrasound results, history of prior pelvic pain with complex ovarian cyst, fibroid, IUD in place. She reports her pelvic pain is resolved and has no other concerns. She is wondering how the IUD works. [facility] Medical History IUD (intrauterine device) in place Fibroid Colon cancer screening Obese Dietary counseling Elevated bilirubin Pelvic pain in female Encounter for annual routine gynecological examination Adult general medical exam Screening for hyperlipidemia Screening for diabetes mellitus Screening for hypothyroidism Concussion Rhinitis Headache Status post fall Breast cancer screening by mammogram Annual physical exam COVID-19 virus infection HPV (human papilloma virus) infection Right arm fracture Allergic rhinitis Migraine Asthma Surgical History History of surgery on arm Family History Father Alzheimers disease Mother Hypertension Osteoporosis Maternal Grandmother Lung cancer Paternal Grandfather CVD (cardiovascular disease) Myocardial infarction Maternal Uncle Stomach cancer Sister Myocardial infarction Other Mental health disorder Social History Household Members: Children Housing: House Alcohol intake: never Patient Tobacco Use Status: Never used Tobacco Tobacco use type: Cigarette e-Cigarette/Vaping Use: Never Used Second Hand Smoke Exposure: No service: No Current occupational status: employed 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 Sexual orientation: Straight/Heterosexual Gender identity: Female Cognitive needs: No Hearing needs: No Vision needs: No Female Reproductive History Menstrual Age of Menarche: 15 Review of Systems Const All systems reviewed & are unremarkable except as noted in HPI and below Endo Reports no additional complaints Physical Exam Vital Signs: Last Vital Signs BP 118/70 09/28/24 07:45 BMI result Body Mass Index 32.2 Const General: cooperative, healthy appearing and no acute distress Psych Appearance: well kempt Attitude: cooperative Thought process: Normal thought process present Results Reviewed Results Reviewed: ? Diagnostics Subcategory All Activity ??:?? All Time ??:?? All Subcategories Filter Laboratory Imaging Microbiology Pathology Blood Bank Tests Cardiovascular Other Specialty DATE TYPE STATUS REF RANGE/AUTHOR Hx 09/14/24 09:30 Breast Ultrasound Signed Yamilet Abdalla?(+) 09/14/24 09:00 Mammogram, Additional Views Signed Yamilet Abdalla?(+) 08/16/24 11:43 Pelvic/Transvag US Signed Rena Wahl 07/11/24 11:45 Mammogram Screening Signed Yamilet Abdalla 07/04/24 11:07 Pelvic/Transvag US Signed Johnny Ferrer 12/17/23 14:23 Pelvic/Transvag US Signed Kayli Koroma 07/10/23 11:50 Mammogram Screening Signed Missy Morris 05/07/22 16:40 Pelvic/Transvag US Signed Javier Borges 02/25/22 13:00 Mammogram Screening Signed Johnny Peres 12/10/21 16:[address] Signed Jacque Gutierrez 11/15/20 13:[address] Signed Javier Borges She/Her/Hers Serenity Jack I Amb 49, F?1975 MRN#? [id number] Exam rm 3 REG AMB,?HO.HWS??? 5ft 9in 218lb 4.122oz BSA: 2.20m? BMI: 32.2kg/m? Visit Date: 09/28/24 Resus Status Not Addressed No Hx Avail Historical Visits Allergies Seasonal Allergies Itchy Eyes Medications Prescription Monitoring Program Active albuterol sulfate 90 mcg/actuation(Ventolin HFA) 2 [id number] bupropion HCl SR(Wellbutrin SR) 100 mgPOBEDTIME cetirizine(Zyrtec) 10 mgPODAILY cholecalciferol (vitamin D3) 50 mcgPODAILY cyanocobalamin (vitamin B-12) 1,000 mcgPODAILY fluticasone furoate 100 mcg/actuation(Arnuity Ellipta) 1 inhinhalationDAILY fluticasone propionate 50 mcg/actuation(Flonase Allergy Relief) 1 sprayintranasalDAILY levonorgestrel(Mirena) intrauterine naproxen 500 mgPOBID Problems HCC Nail dystrophy Abnormal ultrasound of breast Abnormal mammogram of right breast Complex ovarian cyst Ureterocele Uterine fibroid Ovarian cyst Generalized anxiety disorder Colon cancer screening Annual physical exam Obesity (BMI 30.0-34.9) Migraine Low vitamin D level Low vitamin B12 level Colon cancer screening Asthma Encounter for IUD insertion Vitals ? 09/16/24 08:58 Today 07:45 Temp ? ? BP 110/62 ? Pulse 79 ? Resp Rate ? ? O2 Sat 97 ? Height 5 ft 9 in 5 ft 9 in Weight 219 lb 2 oz 218 lb 4.122 oz BMI 32.4 32.2 Outstanding Orders [facility] Body Mass Index (BMI) 32.2 kg/m? 09/28/24 Blood Pressure 110/62 mmHg (90/60 - 139/89) 09/16/24 Cholesterol 184 mg/dL (<200) 07/26/24 HDL Cholesterol 59 mg/dL (>40) 07/26/24 Triglycerides 79 mg/dL (<150) 07/26/24 Lab Results Last Value Most Recent Hematology WBC (4.8-10.8) 6.5 X10*3/uL 07/26/24 RBC (4.20-5.50) 4.40 X10*6/uL 07/26/24 Hgb (12.0-16.0) 14.4 g/dl 07/26/24 Hct (37.0-47.0) 42.3 % 07/26/24 MCV (80.0-98.0) 96.1 fL 07/26/24 MCH (27.0-33.0) 32.7 pg 07/26/24 MCHC (31.0-35.0) 34.0 g/dl 07/26/24 RDW (11.0-16.0) 12.4 % 07/26/24 Plt Count (160-400) 332 X10*3/uL 07/26/24 MPV (9.4-12.3) 9.5 fL 07/26/24 Immature Gran % (Auto) (0.0-0.4) 0.3 % 07/26/24 Neut % (Auto) (45-73) 66.6 % 07/26/24 Lymph % (Auto) (20-40) 20.7 % 07/26/24 [place] % (Auto) (2-11) 7.2 % 07/26/24 Eos % (Auto) (0-4) 4.3 % H 07/26/24 Baso % (Auto) (0-2) 0.9 % 07/26/24 Lymph # (Auto) (1.2-4.9) 1.4 X10*3/uL 07/26/24 [place] # (Auto) (0.1-1.2) 0.5 X10*3/uL 07/26/24 Eos # (Auto) (0.0-0.4) 0.3 X10*3/uL 07/26/24 Baso # (Auto) (0.0-0.2) 0.1 X10*3/uL 07/26/24 Abs Immat Gran (auto) (0.00-0.03) 0.02 X10*3/uL 07/26/24 Absolute Neuts (auto) (2.0-8.3) 4.3 x10*3/uL 07/26/24 Absolute Nucleated RBC (0.0-0.012) 0.000 X10*3/uL 07/26/24 Nucleated RBC % (auto) (0.0-0.2) 0.0 /100WBC 07/26/24 Chemistry Sodium (135-145) 138 mmol/L 07/26/24 Potassium (3.3-5.1) 3.9 mmol/L 07/26/24 Chloride (96-108) 107 mmol/L 07/26/24 Carbon Dioxide (22-29) 26 mmol/L 07/26/24 Anion Gap (12-20) 9 L 07/26/24 BUN (9-16) 10 mg/dL 07/26/24 Creatinine (0.5-1.4) 0.83 mg/dL 07/26/24 Estim Creat Clear Calc Not Reportable 07/26/24 Estimated GFR > 60? 07/26/24 Random Glucose (60-115) 93 mg/dL 07/26/24 Calcium (8.4-10.2) 9.2 mg/dL 07/26/24 Total Bilirubin (0.0-1.0) 1.2 mg/dL H 07/26/24 AST (5-31) 14 U/L 07/26/24 ALT (0-31) 12 U/L 07/26/24 Alkaline Phosphatase (39-117) 106 U/L 07/26/24 Total Protein (6.5-8.0) 7.2 g/dL 07/26/24 Albumin (3.5-5.0) 4.1 g/dL 07/26/24 Triglycerides (<150) 79 mg/dL 07/26/24 Cholesterol (<200) 184 mg/dL 07/26/24 LDL Cholesterol, Calc (<100) 110 mg/dL H 07/26/24 HDL Cholesterol (>40) 59 mg/dL 07/26/24 Vitamin B12 (200-900) 593 pg/mL 07/26/24 25-OH Vitamin D Total (>30) 30.7 ng/mL L 07/26/24 Folate (> or = 4.0) 11.0 ng/mL 07/26/24 TSH (0.32-4.0) 1.17 uIU/mL 07/26/24 Free T4 (0.71-1.85) 0.80 ng/dL 07/26/24 Laboratory Reports Cologuard Result [employer] 12/17/22 Lab Scanned Documents Most Recent Laboratory Reports Cologuard Result [email or web address] 12/17/22 Documents Most Recent Departmental Office Visit Today Primary Care Visit 09/16/24 Consult Notes, External NEUROLOGICAL 02/13/23 Colonoscopy, Screening NOT COMPLETED 03/06/22 Imaging Breast Ultrasound 09/14/24 Mammogram, Additional Views 09/14/24 Pelvic/Transvag US 08/16/24 Special Indicators Pharmacies Diagnostics Reports Serenity Jack I?(c)??She/Her/Hers??49??F??1975 ? Allergy/Adv: Seasonal Allergies (More??) Close Breast Ultrasound (Signed) Yamilet Abdalla (+) - 09/14/24 Mammogram, Additional Views (Signed) Yamilet Abdalla (+) - 09/14/24 Pelvic/Transvag US (Signed) Rena Wahl - 08/16/24 Mammogram Screening (Signed) Yamilet Abdalla - 07/11/24 Pelvic/Transvag US (Signed) Johnny Ferrer - 07/04/24 Pelvic/Transvag US (Signed) Kayli Koroma - 12/17/23 Mammogram Screening (Signed) Missy Morris - 07/10/23 Pelvic/Transvag US (Signed) Javier Borges - 05/07/22 Mammogram Screening (Signed) Isaías Peresen - 02/25/[address] (Signed) Jacque Gutierrez - 12/10/[address] (Signed) Javier Borges - 11/15/20 Launch?Image [address] [address] Ultrasound Report Signed Patient: Serenity Jack I MR#: [id number] : 1975 Acct:[id number] Age/Sex: 49 / F ADM Date: 08/16/24 Loc: .[place] Attending Dr: Gayathri Aguayo CNM Ordering Physician: Gayathri Aguayo CNM Date of Service: 08/16/24 Procedure(s): US pelvic and transvaginal Accession Number(s): [id number] cc: Gayathri Aguayo CNM; Nadia Omalley MD~ EXAMINATION: US PELVIS CLINICAL INFORMATION: Ovarian cyst COMPARISON: July 04, 2024 TECHNIQUE: Ultrasound of the pelvis is performed using both transabdominal and transvaginal transducers along with Doppler. Transvaginal imaging is performed due to inadequate visualization transabdominally. FINDINGS: Uterus: The uterus is anteverted and measures 8.9 x 4.3 x 6.2 cm. The double wall endometrial thickness is 0.7 mm. There is IUD in good position There is single subserosal 2.0 x 1.5 x 1.7 cm leiomyoma slightly smaller than on the previous measurements. No new fibroids are identified Adnexa: Both ovaries are visualized. There is normal color flow to the adnexa. There is no ovarian torsion. There is no fluid seen in cul-de-sac. There is small simple cyst in left ovary measured 2.0 x 1.7 x 1.7 cm. Right ovary measures 2.7 x 1.9 x 2.1 cm. With a volume measured 5.6 mL Left ovary measures 4.7 x 2.7 x 2.3 cm. With a volume measured 15.3 US/US pelvic and transvaginal IMPRESSION: 1. Small subserosal uterine leiomyoma. 2. IUD in good position. 3. Small simple cyst in left ovary. 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: Assessment & Plan Assessment & Plan (1) Ovarian cyst: Code(s): N83.209 - Unspecified ovarian cyst, unspecified side Category: Medical Qualifiers: Laterality: left Qualified Code(s): N83.202 - Unspecified ovarian cyst, left side (2) Uterine fibroid: Code(s): D25.9 - Leiomyoma of uterus, unspecified Category: Medical Qualifiers: Uterine leiomyoma location: unspecified location Qualified Code(s): D25.9 - Leiomyoma of uterus, unspecified (3) Encounter to discuss test results: Code(s): Z71.2 - Person consulting for explanation of examination or test findings Plan Discussed: Ultrasound findings-left simple cyst 2 cm, IUD in place, fibroid slightly smaller. Effects and details of Mirena IUD for cycle control. Counseled re: Leiomyoma: common pelvic neoplasm. Differential diagnosis-may include but not limited to- leiomyosarcoma which is a rare uterine sarcoma 3-7/100,000, difficult to distinguish from fibroids on ultrasound from uterine sarcoma's. Unlikely any single test will have a highly positive predictive value. Hysterectomy is not recommended for sole purpose of excluding malignant neoplasm. Consult for surgical exploration, medical treatment, other treatments, verses expectant management, pros and cons, risks and benefits. Report any PMB/AUB, pelvic pressure, bloating, or pain. Menopause verses perimenopause changes and challenges to determine when IUD is in place. Annual exam scheduled 04/04/2025. Breast follow up with Dr. Love scheduled in December. All of her questions and concerns were addressed to the best of my ability and shared decision making. She is agreeable to the plan of care. This note is constructed using voice recognition software. While every effort has been made to ensure accuracy, boring mill operator for metal errors may have been included. Coding Level of Care Code Est Pt Level 3 (03333) Diagnoses Cyst of left ovary N83.202 Laterality: left Uterine leiomyoma, unspecified location D25.9 Uterine leiomyoma location: unspecified location Encounter to discuss test results Z71.2
== END 2024-09-28 08:09 | disposition home or self-care (01) ==
PROVIDERS: PCP Internal Medicine; Visit Provider Advanced Practice Midwife
DX: N83.202 Unspecified ovarian cyst, left side (principal); D25.9 Leiomyoma of uterus, unspecified; Z71.2 Person consulting for explanation of examination or test findings
CPT/HCPCS: 99213

== ENCOUNTER → 2024-09-28 07:45 | Outpatient (BNVA) | payer OTHER, SELFPAY | PROVIDERS: PCP Internal Medicine; Visit Provider Advanced Practice Midwife | DX: N83.202 Unspecified ovarian cyst, left side (principal); D25.9 Leiomyoma of uterus, unspecified; Z71.2 Person consulting for explanation of examination or test findings | CPT/HCPCS: 99212 ==

== ENCOUNTER 2025-08-10 14:42 | Outpatient (AMB) | payer OTHER, SELFPAY ==
--- NOTE | 2025-08-10 15:10 | A.OFFPC_ITS ---
Vital Signs 08/10/25 15:11 Height 5 ft 9 in Weight 189 lb BMI 27.9 BP 118/72 Blood Pressure Location Lt brachial Position Sitting Pulse 80 Pulse Source Pulse Oximeter Pulse Oximetry (%) 98 Oxygen Delivery Method Room Air Intake Visit Reasons: PE Allergies Seasonal Allergies Allergy (Severe, Verified 08/10/25 15:11) Itchy Eyes Medication List - Last Reconciled 08/10/25 by Nadia Omalley MD albuterol sulfate 90 mcg/actuation (Ventolin HFA) 2 puffs inhalation Q6H PRN cetirizine (Zyrtec) 10 mg PO DAILY cholecalciferol (vitamin D3) 50 mcg PO DAILY cyanocobalamin (vitamin B-12) 1,000 mcg PO DAILY fluticasone propionate 50 mcg/actuation (Flonase Allergy Relief) 1 spray intranasal DAILY levonorgestrel (Mirena) intrauterine naproxen 500 mg PO BID Tobacco use date assessed: 08/10/25 Dental Screening Dental Screen Date: 08/10/25 Did you have a dental visit in the last 12 months?: Yes Did you have a dental problem in the last 6 months where you did not have access to dental care?: No Was dental information given to patient?: Patient has dentist [facility] Medical History (Updated 08/10/25 @ 15:24 by Nadia Omalley MD) Obesity (BMI 30.0-34.9) Colon cancer screening IUD (intrauterine device) in place Fibroid Colon cancer screening Obese Dietary counseling Elevated bilirubin Pelvic pain in female Encounter for annual routine gynecological examination Adult general medical exam Screening for hyperlipidemia Screening for diabetes mellitus Screening for hypothyroidism Concussion Rhinitis Headache Status post fall Breast cancer screening by mammogram Annual physical exam COVID-19 virus infection HPV (human papilloma virus) infection Right arm fracture Allergic rhinitis Migraine Asthma Surgical History History of surgery on arm Family History Father Alzheimers disease Mother Hypertension Osteoporosis Maternal Grandmother Lung cancer Paternal Grandfather CVD (cardiovascular disease) Myocardial infarction Maternal Uncle Stomach cancer Sister Myocardial infarction Other Mental health disorder Social History Household Members: Children Housing: House Alcohol intake: never Patient Tobacco Use Status: Never used Tobacco Tobacco use type: Cigarette e-Cigarette/Vaping Use: Never Used Second Hand Smoke Exposure: No service: No Current occupational status: employed 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 1. Little interest or pleasure in doing things: not at all 2. Feeling down, depressed, or hopeless: not at all 3. Trouble falling or staying asleep, or sleeping too much: not at all 4. Feeling tired or having little energy: not at all 5. Poor appetite or overeating: not at all 6. Feeling bad about yourself - or that you are a failure or have let yourself or your family down: not at all 7. Trouble concentrating on things, such as reading the newspaper or watching television: not at all 8. Moving or speaking so slowly that other people could have noticed. Or the opposite - being so fidgety or restless that you have been moving around a lot more than usual: not at all 9. Thoughts that you would be better off or of hurting yourself in some way: not at all Total score: 0 Depression Screening Interpretation: Negative Depression Screening Done: Yes Source: Developed by Drs. Taiwo King, Auyr Parsons, Serge Tesfaye and colleagues, with an educational jessica from [employer]. Thrive Questionnaire Date Thrive assessed: 08/10/25 I am a: Patient What is your living situation today?: I have a steady place to live Within the past 12 months, did the food you bought not last and you didn't have the money to get more?: Sometimes True Within the past 12 months, did you worry whether your food would run out before you got money to buy more?: Sometimes True Do you have trouble paying for medicines?: Yes Do you have trouble getting transportation to medical appointments?: No Do you have trouble paying your heating and electricity bill?: Yes Do you have trouble taking care of your child, family member or friend?: No Do you have trouble with day-to-day activities such as bathing, preparing meals, shopping, managing finances, etc.?: Yes Are you currently unemployed and looking for a job?: No Are you interested in more education?: No Please select the resources that you would like help with: None Currently or been in a relationship where the following occur: No concerns reported THRIVE Score: 3 AUDIT C Alcohol Use Questionnaire (AUDIT-C) 1. How often do you have a drink containing alcohol?: Never 3. How often do you have six or more drinks on one occasion?: Never Total Score: 0 MADI-7 AMB Questionnaire MADI-7 Date MADI - 7 assessed: 08/10/25 Feeling nervous, anxious, or on edge: 0 = Not at all Not being able to stop or control worryin = Not at all Worrying too much about different things: 0 = Not at all Trouble relaxin = Not at all Being so restless that it is hard to sit still: 0 = Not at all Becoming easily annoyed or irritable: 0 = Not at all Feeling afraid as if something awful might happen: 0 = Not at all Total MADI-7 score (0-4 normal; 5-9 mild; 10-14 moderate; 15-21 severe): 0 Source: Developed by Drs. Taiwo King, Aury Parsons, Serge Tesfaye and colleagues, with an educational jessica from [employer]. Review of Systems Const Denies poor appetite and Denies weakness Eyes Denies no additional complaints ENT Reports Normal hearing present, Denies dizziness, Denies nasal congestion, Denies tinnitus and Denies sore throat Card Denies chest pain, Denies syncope, Denies rapid heart rate and Denies dyspnea Resp Denies cough and Denies dyspnea GI Denies change in stool character, Reports constipation, Denies diarrhea, Denies nausea and Denies vomiting Denies urinary frequency, Denies difficulty voiding and Denies dysuria Neuro Reports Normal hearing present, Denies confusion, Denies dizziness, Denies syncope and Denies weakness Psych Denies confusion Physical exam (Primary Care) Vital Signs: Last Vital Signs Pulse 80 08/10/25 15:11 BP 118/72 08/10/25 15:11 Pulse Ox 98 08/10/25 15:11 Oxygen Delivery Method Room Air 08/10/25 15:11 BMI result Body Mass Index 27.9 Tobacco/Smoking Status: Tobacco use Status Tobacco use date assessed 08/10/25 08/10/25 15:12 Patient Tobacco Use Status Never used Tobacco 08/10/25 15:12 Tobacco use type Cigarette 08/10/25 15:12 e-Cigarette/Vaping Use Never Used 08/10/25 15:12 PHQ-9: PHQ-9 Score PHQ-9: Total score 0 08/10/25 15:24 Depression Screening Interpretation: Negative Thrive Assessment: Date of Thrive Assessment Date Thrive assessed 08/10/25 08/10/25 15:12 Currently or been in a relationship where the following occur: No concerns reported Const General: No confusion Orientation/consciousness: No confusion HENMT Head: Yes normocephalic Ears: external ears normal and TM's normal bilaterally Face and sinus: Yes normal facial exam Mouth: moist mucous membranes Throat: Yes tonsils normal Eyes Conjunctivae: conjunctivae normal Pupils: Equal, round and reactive pupils present and Pupil accommodation reflex normal Direct Ophthalmoscopy: normal light reflex Neck Neck: No lymphadenopathy Thyroid: Thyroid normal Chest Chest palpation & inspection: normal inspection of the chest Resp Effort & Inspection: normal respiratory effort and no audible wheezes Auscultation: clear to auscultation bilaterally, no crackles, no wheezes and lung sounds not diminished Cardio Rate: regular rate Rhythm: regular rhythm Peripheral pulses: radial pulses present and dorsalis pedis present GI Palpation (GI): no masses Auscultation: normal bowel sounds and normoactive bowel sounds Rectal Exam - Female: deferred Skin General skin exam: no rashes or lesions noted Rashes: no rashes Neuro General: No confusion Cranial nerves: Yes Equal, round and reactive pupils present and Yes Normal hearing present Cognition (Neuro): normal cognition Gait exam (Neuro): Normal gait present Motor exam (neuro): 5/5 motor strength present throughout Deep tendon reflexes (DTR's): Right brachioradialis reflex intensity grade: 2+, Left brachioradialis reflex intensity grade: 2+, Right patellar reflex intensity grade: 2+ and Left patellar reflex intensity grade: 2+ Extrem General: No edema Coding Level of Care Code Est Pt Prev Care 40-64y(57878) Diagnoses Annual physical exam Z00.00 Mild intermittent asthma without complication J45.20 Asthma complication type: uncomplicated Asthma persistence: intermittent Asthma severity: mild Migraine without aura and without status migrainosus, not intractable G43.009 Intractability: not intractable Migraine type: migraine (< 15 days per month) without aura Status migrainosus presence: without status migrainosus Colon cancer screening Z12.11 Generalized anxiety disorder F41.1 Overweight (BMI 25.0-29.9) E66.3 Assessment & Plan Assessment & Plan (1) Annual physical exam: Code(s): Z00.00 - Encounter for general adult medical examination without abnormal findings Category: Medical Plan: Patient is advised to eat healthy, keep well hydrated, keep active and have adequate sleep. (2) Asthma: Code(s): J45.909 - Unspecified asthma, uncomplicated Category: Medical Qualifiers: Asthma complication type: uncomplicated Asthma persistence: intermittent Asthma severity: mild Qualified Code(s): J45.20 - Mild intermittent asthma, uncomplicated Plan: Continue with albuterol inhaler as needed, patient on Arnuity (3) Migraine: Code(s): G43.909 - Migraine, unspecified, not intractable, without status migrainosus Category: Medical Qualifiers: Intractability: not intractable Migraine type: migraine (< 15 days per month) without aura Status migrainosus presence: without status migrainosus Qualified Code(s): G43.009 - Migraine without aura, not intractable, without status migrainosus Plan: Patient is advised to eat healthy, keep well hydrated, keep active and have adequate sleep. (4) Colon cancer screening: Code(s): Z12.11 - Encounter for screening for malignant neoplasm of colon Category: Medical Plan: Patient is reminded about colonoscopy (5) Generalized anxiety disorder: Code(s): F41.1 - Generalized anxiety disorder Category: Medical Plan: Continue with Wellbutrin (6) Overweight (BMI 25.0-29.9): Code(s): E66.3 - Overweight Category: Medical Plan: Diet and exercise to continue Plan History of Present Illness The patient is a 50-year-old female presenting for a physical examination and preventative care. The patient has a history of asthma, which she manages with an albuterol inhaler as needed. She reports no recent exacerbations and feels stable with her current regimen. The patient also has a history of migraines and sensitivity disorder, though specific details about these conditions were not elaborated upon during the visit. She has experienced a significant weight loss of 30 pounds, which she attributes to lifestyle changes. Despite this, she is still considered overweight. Her last blood work in July showed normal results across various parameters, including blood count, electrolytes, renal function, blood sugar, liver function, cholesterol, B12, folic acid, and thyroid function. Preventative care measures discussed include a follow-up mammogram and colon cancer screening. The patient had not completed the Cologuard test previously requested. Health Maintenance - Mammogram follow-up recommended - Colon cancer screening discussed - Blood work in July showed normal results Social History - The patient does not consume alcohol, smoke, or use recreational drugs. - She has experienced a 30-pound weight loss through lifestyle changes. - Family history includes heart disease and double pneumonia. Review of Systems - General: Denies fever, weight gain, or fatigue. - Respiratory: Denies dyspnea, cough, or wheezing. - Cardiovascular: Denies chest pain, palpitations, or syncope. - Gastrointestinal: Denies nausea, vomiting, or constipation. - Neurological: Denies dizziness, headaches, or visual disturbances. Physical Exam General: Cooperative, healthy appearing, comfortable, no acute distress and well developed Orientation: Patient oriented x3 Limitations: No limitations Head: Normal to inspection Ears: Hearing grossly normal bilaterally, but right ear has about 60% blockage Nose: Normal external nose present Face and sinus: Normal facial exam Eyes: Appearance normal, both eyes and all related structures Neck: Normal visual inspection and Yes full ROM Respiratory: Normal respiratory effort and able to speak in complete sentences. Clear to auscultation bilaterally Cardiovascular: Regular rate and rhythm. Normal S1 and S2 GI: Normal to inspection. Soft to palpation and nontender Skin: No rashes or lesions noted Neuro: Patient oriented x3 Extremities: Normal to inspection Results - Labs: Normal blood count, electrolytes, renal function, blood sugar, liver function, cholesterol, B12, folic acid, and thyroid function from July blood work Plan Patient was informed and verbally consented to the use of an ambient scribe for clinic note documentation during this visit. 1. Asthma The patient will continue using the albuterol inhaler as needed for asthma management. She reports stability with her current regimen and no recent exacerbations. 2. Preventative Care The patient is advised to follow up on her mammogram and consider colon cancer screening options. She is reminded of the importance of these screenings for early detection and prevention. Discussion Notes During the visit, I discussed with the patient the importance of continuing her asthma management with the albuterol inhaler as needed. We also reviewed the need for preventative screenings, including a mammogram and colon cancer screening, emphasizing their role in early detection and prevention. Patient Instructions - Continue using the albuterol inhaler as needed for asthma. - Schedule and complete a follow-up mammogram. - Consider options for colon cancer screening and complete the test. Orders: Orders Comprehensive Met. Panel Today J45.20 - Mild intermittent asthma, uncomplicated Free T4 (Free Thyroxine) Today J45.20 - Mild intermittent asthma, uncomplicated Vitamin B12 and Folate Today J45.20 - Mild intermittent asthma, uncomplicated Vitamin D 25-OH Total Today J45.20 - Mild intermittent asthma, uncomplicated Complete Blood Count Auto Diff Today J45.20 - Mild intermittent asthma, uncomplicated Thyroid Stimulating Hormone Today J45.20 - Mild intermittent asthma, uncomplicated Lipid Panel Today E78.00 - Pure hypercholesterolemia, unspecified, J45.20 - Mild intermittent asthma, uncomplicated Medications: Refilled naproxen 500 mg PO BID 60 tabs 2RF Z12.31 - Encounter for screening mammogram for malignant neoplasm of breast cetirizine (Zyrtec) 10 mg PO DAILY 90 tabs 3RF J31.0 - Chronic rhinitis cholecalciferol (vitamin D3) 50 mcg PO DAILY 90 tabs 0RF R79.89 - Other specified abnormal findings of blood chemistry fluticasone propionate 50 mcg/actuation (Flonase Allergy Relief) administer into each nostril 1 spray intranasal DAILY 150 mL 3RF J31.0 - Chronic rhinitis albuterol sulfate 90 mcg/actuation (Ventolin HFA) 2 puffs inhalation Q6H PRN 8.5 grams 0RF for muscle spasm J45.909 - Unspecified asthma, uncomplicated
[2025-08-10 15:11] VITALS: BP 118/72; PULSE 80; O2SAT 98; BMI 27.9
--- OUTSIDE RECORDS SUMMARY | 2025-08-10 19:01 | XMS_ITS | Clinical Summary ---
Author Organization [facility] Address [address] [place] [address] Phone Care Team Providers Care Bronc Buster Name Role Phone Nadia Omalley MD Primary Care Provider [phone] Allergies No known active allergies Medications VENTOLIN HFA 90 mcg/actuation inhaler 04/01/2024 Active buPROPion (WELLBUTRIN SR) 100 MG SR 12 hr tablet take 1 tablet by mouth everyday at bedtime 03/10/2024 Active cetirizine (ZYRTEC) 10 MG tablet 04/01/2024 Active cholecalciferol (VITAMIN D3) 2,000 unit tablet Take 1 tablet by mouth every morning. 01/06/2024 Active cyanocobalamin, vitamin B-12, 1000 MCG tablet 04/07/2024 Act eddie fluticasone propionate (FLONASE) 50 mcg/actuation nasal spray USE 1 SPRAY INTO EACH NOSTRIL ONCE DAILY 03/10/2024 Active naproxen (NAPROSYN) 500 MG tablet 04/06/2024 Active Active Problems No known active problems Immunizations Immunization Administration Dates Next Due Hepatitis B 07/07/2018 Influenza Quadrivalent w/ Preservative IM 2017,10/06/2017 MMR 07/28/2018 Tdap 02/02/2017 Social History Tobacco Use Types Packs/Day Years Used Date Smoking Tobacco: Never Smokeless Tobacco: Never Education Answer Date Recorded Are you interested in more education? Not on vianey e 04/08/2024 Are you concerned about learning? Not on file 04/08/2024 No 04/08/2024 No 04/08/2024 Digital Access Answer Date Recorded No 04/08/2024 No 04/08/2024 Reliable internet access at home? Not on file 04/08/2024 Device with a working camera? Not on file Comments Unknown Sex and Gender Information Value Date Recorded Sex Assigned at Not on file Legal Sex Female 9:39 AM EDT Gender Identity Not on file Sexual Orientation Not on file Last Filed Vital Signs Vital Sign Reading Time Taken Comments Blood Pressure 111/78 04/08/2024 10:01 AM EDT Pulse 69 04/08/2024 10:01 AM EDT Temperature 36.8 C (98.2 F) 04/08/2024 10:01 AM EDT Respiratory Rate 18 04/08/2024 10:01 AM EDT Oxygen Saturation 98% 04/08/2024 10:01 AM EDT Inhaled Oxygen Concentration - - Weight - - Height - - Body Mass Index - - Plan of Treatment Health Maintenance Due Date Last Done Comments LIPID PANEL 1976 DEPRESSION SCREENING 1988 HEPATITIS C SCREENING 1994 HIV ONE-TIME SCREENING (18-6 5 YEARS) 1994 PAP SMEAR 1997 MAMMOGRAM 2016 COLOGUARD 2021 COLONOSCOPY 2021 COLORECTAL CANCER SCREENING 2021 FIT TEST 2021 FOBT 2021 SIGMOIDOSCOPY 2021 VIRTUAL COLONOSCOPY 2021 INFLUENZA VACCINE (#1) 2025 8, 10/06/2017 COVID-19 VACCINE (1 - 2023-2 5 season) 2025 Adult Td,Tdap Booster 02/02/2027 02/02/2017 SMOKING STATUS SCREENING (On ce After 26 Yrs) Completed 04/08/2024 HEPATITIS A VACCINES Aged Out No long er eligible based on patient's age to complete this topic HIB VACCINES Aged Out No longer eligi ble based on patient's age to complete this topic MENINGOCOCCAL VACCINES (ACWY) Aged Out No longer eligible based on patient's age to complete this topic MENINGOCOCCAL VACCINES (B) Aged Out N o longer eligible based on patient's age to complete this topic PNEUMOCOCCAL VACCINES (0-49 years) Aged Out No longer eligible b ased on patient's age to complete this topic Medical Devices Not on file Insurance [address] [address] ACO ACO ACO ACO Care Teams Bronc Buster Relationship Specialty Start Date End Date Nadia Omalley MD [address] [place] [address] [address] [place] [phone] PCP - General Internal Medicine 04/08/24 Additional Source Comments The information contained in this document represents components of the legal health record. It is not the complete legal health record.[facility]
== END 2025-08-10 15:42 | disposition home or self-care (01) ==
LOC: HO.HMCH 14:43
PROVIDERS: PCP Internal Medicine; Visit Provider Internal Medicine
DX: Z00.00 Encounter for general adult medical examination without abnormal findings (principal); J45.20 Mild intermittent asthma, uncomplicated; G43.009 Migraine without aura, not intractable, without status migrainosus; Z12.11 Encounter for screening for malignant neoplasm of colon; F41.1 Generalized anxiety disorder; E66.3 Overweight